=== PATIENT | female | born 1950 | race Caucasian/White ===

== ENCOUNTER 2023-11-17 10:27 | Emergency (ER) | payer MEDICARE, BC, SELFPAY ==
[2023-11-17] VITALS (20 sets, daily range): BP systolic 113–131; BP diastolic 51–65; PULSE 60–73; RESP 18; TEMP 36.6; O2SAT 92–97; BMI 29.0
--- NOTE | 2023-11-17 10:54 | CRLHL7_ITS ---
For Patients: As a result of the Century Cures Act, medical imaging exams and procedure reports are released immediately into your electronic medical record. You may view this report before your referring provider. If you have questions, please contact your health care provider. Indication: FALL, LT ANKLE PAIN Technique: Three views of the left ankle Comparison: Left ankle radiographs on November 15, 2023 Findings/impression : There is redemonstration of a minimally displaced Vela B distal fibula fracture with minimal lateral displacement. No medial clear space widening. No new fracture or malalignment. Reduced lateral ankle soft tissue swelling. Dictated by Tony Cash MD @ 11/17/2023 1:35:10 PM (Electronically Signed)
--- NOTE | 2023-11-17 10:54 | CRLHL7_ITS ---
For Patients: As a result of the Century Cures Act, medical imaging exams and procedure reports are released immediately into your electronic medical record. You may view this report before your referring provider. If you have questions, please contact your health care provider. INDICATION: FALL, BLUNT Trauma, FALL ON WARFARIN TECHNIQUE: CT of the head was performed without IV contrast. COMPARISON: None. FINDINGS: Parenchyma: No acute hemorrhage, infarction, or mass. Mild scattered periventricular white matter hypoattenuation is nonspecific and is favored to represent chronic small vessel ischemic disease. Ventricles and extra-axial spaces: Appropriate for age. Visualized paranasal sinuses: Clear. Mastoid air cells: Clear. Bones: No focal abnormality. Additional comment: Bilateral lens surgery. IMPRESSION: No acute intracranial abnormality. Please note that all CT scans at this facility use dose modulation, iterative reconstruction, and/or weight-based dosing when appropriate to reduce radiation dose to as low as reasonably achievable. Dictated by Darshan Kamara MD @ 11/17/2023 1:10:02 PM (Electronically Signed)
--- NOTE | 2023-11-17 10:54 | CRLHL7_ITS ---
For Patients: As a result of the Cures Act, medical imaging exams and procedure reports are released immediately into your electronic medical record. You may view this report before your referring provider. If you have questions, please contact your health care provider. Indication: Fall with knee pain Technique: Three views of the left knee Comparison: None Findings/impression : No acute fracture or malalignment. No joint effusion. Mild joint space narrowing and subchondral sclerosis with small osteophyte formation of the lateral patellofemoral joint space; otherwise, no significant osteoarthritic degenerative changes of the left knee. No suspicious osseous lesions. Vascular calcifications. Dictated by Tony Cash MD @ 11/17/2023 1:31:14 PM (Electronically Signed)
--- NOTE | 2023-11-17 10:55 | CRLHL7_ITS ---
For Patients: As a result of the Century Cures Act, medical imaging exams and procedure reports are released immediately into your electronic medical record. You may view this report before your referring provider. If you have questions, please contact your health care provider. INDICATION: FALL, BLUNT Trauma, FALL ON WARFARIN TECHNIQUE: CT of the cervical spine was performed without intravenous contrast. COMPARISON: None. FINDINGS: Alignment: Normal. Vertebrae: Vertebral bodies and posterior elements are intact without acute fracture. Mild multilevel degenerative changes of the visualized spine most prominent C5-6. Extra-vertebral soft tissues: Normal. Visualized brain: Normal. Additional comment: None. IMPRESSION: No acute displaced fracture or malalignment of the cervical spine. Please note that all CT scans at this facility use dose modulation, iterative reconstruction, and/or weight-based dosing when appropriate to reduce radiation dose to as low as reasonably achievable. Dictated by Darshan Kamara MD @ 11/17/2023 1:04:20 PM (Electronically Signed)
--- OUTSIDE RECORDS SUMMARY | 2023-11-17 11:04 | XMS_ITS | Encounter Summary ---
Author Organization [facility] Address [address] [place] [address] Care Team Providers Care Loan Coordinator Name Role Phone Geeta Ladd M.D. Primary Care Pro vider Encounter Details Date Type Department Care Team (Latest Contact Info) Description 09/22/2023 8:32 AM CDT - 09/22/2023 11:59 PM CDT Hospital Encounter Department of Laboratory Medicine in [address] [phone] Geeta Ladd M.D. [address] [place] [phone] Antiphospholipid Antibody Syndrome (HCC) Discharge Disposition: Home or Self Care Social History Tobacco Use Types Packs/Day Years Used Date Smoking Tobacco: Never Smokeless Tobacco: Never Alcohol Use Standard Drinks/Week Comments Yes 1 (1 standard drink = 0.6 oz pur e alcohol) Humiliation, Afraid, Rape, and Kick questionnair e Answer Date Recorded Within the last year, have y ou been afraid of your partner or ex-partner? No 10/05/2022 Within the last year, have y ou been humiliated or emotionally abused in other ways by your partner or ex-partner? No Within the last year, have y ou been kicked, hit, slapped, or otherwise physically hurt by your partner or ex-partner? No 10/05/2022 Within the last year, have y ou been raped or forced to have any kind of sexual activity by your partner or ex-partner? No 10/05/2022 Social Connection and Isolat ion Panel [NHANES] Answer Date Recorded In a typical week, how many times do you talk on the phone with family, friends, or neighbors? More than three times a week 10/05/2022 How often do you get togethe r with friends or relatives? Once a week 10/05/2022 How often do you attend [facility] or latter day services? Patient declined 10/05/2022 Do you belong to any clubs o r organizations such as gnosticism groups, unions, fraternal or athletic groups, or school groups? No 10/05/2022 How often do you attend meet ings of the clubs or organizations you belong to? Never 10/05/2022 Are you , , di vorced, , never , or living with a partner? 10/05/2022 AUDIT-C Answer Date Recorded Q1: How often do you have a drink containing alc ohol? Never 10/05/2022 Q2: How many drinks containi ng alcohol do you have on a typical day when you are drinking? 1 or 2 10/05/2022 Q3: How often do you have six or more drinks on one occasion? Never 10/05/2022 Overall Financial Resource Strain (CARDIA) Answe r Date Recorded How hard is it for you to pa y for the very basics like food, housing, medical care, and heating? Not hard at all 10/05/2022 PHQ-2 Answer Date Recorded PHQ-2 Score 0 01/17/2023 [facility] Occupat ional [facility] - Occupational Stress Questionnaire Answer Date Recorded Do you feel stress - tense, restless, nervous, or anxious, or unable to sleep at night because your mind is troubled all the time - these days? To some extent 10/05/2022 Exercise Vital Sign Answer Date Recorde d On average, how many days pe r week do you engage in moderate to strenuous exercise (like a brisk walk)? 0 days 10/05/2022 On average, how many minutes do you engage in exercise at this level? 30 min 10/05/2022 Hunger Vital Sign Answer Date Recorded Within the past 12 months, y ou worried that your food would run out before you got the money to buy more. Never true 10/06/19 23 Within the past 12 months, t he food you bought just didn't last and you didn't have money to get more. Never true 10/05/2022 PRAPARE - Transportation Answer Date Re corded In the past 12 months, has l ack of transportation kept you from medical appointments or from getting medications? No 09/15 In the past 12 months, has l ack of transportation kept you from meetings, work, or from getting things needed for daily living? No 10/05/2022 Housing Stability Vital Sign Answer Andrea e Recorded In the last 12 months, was t here a time when you were not able to pay the mortgage or rent on time? No 10/05/2022 In the last 12 months, how many places have you lived? 1 10/05/2022 In the last 12 months, was t here a time when you did not have a steady place to sleep or slept in a fdc (including now)? No 10/05/2022 Nutrition Answer Date Recorded Nutrition: EVOO Fat Source No 10/05 On average, how many serving s of fruits and vegetables do you eat per day (serving size is equal to 1 cup or approximately the size of a tennis ball)? 2-3 10/05/2022 Dental Answer Date Recorded Dental: Regular Dentist Yes 08/30/19 Employment Answer Date Recorded Employment status Retired 10/05/2022 Education Answer Date Recorded What is the highest level of school you have completed or the highest degree you have received? 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 90 tablet 3 11/18/2022 atorvastatin (LIPITOR) 40 mg tablet TAKE 1 TABLET AT BEDTIME 90 tablet 3 03/01/2023 cholecalciferol (for_VITAMIN D3) 1,000 Unit tablet Take 1 tablet by mouth daily. 02/19/2017 cyanocobalamin (VITAMIN B12) 1,000 mcg tablet Take 1,000 mcg by mouth daily. DME CPAPIndications:Obstru ctive Sleep Apnea Adult DME Order 1 Device NEEDED 05/05/2019 losartan (COZAAR) 100 mg tablet Take 1 tablet (100 mg total) by mouth daily. 90 tablet 3 08/06/2023 polymyxin B-trimethoprim (POLYTRIM) 10,000 unit- 1 mg/mL ophthalmic solution Administer 1 drop into the left eye 2 (two) times a day. 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 PLEASE TAKE PER ANTICOAGULATION VISIT SUMMARY- CURRENT DOSE: 1 TAB DAILY 90 tablet 3 08/06/2023 documented as of this encounter Plan of Treatment Upcoming Encounters Date Type Department Care Team (Latest Contact Info) Description 12/15/2023 8:50 AM CDT Appointment Department of Laboratory Medicine in [address] [phone] Geeta Ladd M.D. [address] [place] [phone] 12/15/2023 9:30 AM CDT Anticoagulation Visit Department of Anticoagulation in [place] [address] [place] [phone] Geeta Ladd M.D. [address] [place] [phone] documented as of this encounter Procedures Procedure Name Priority Date/Time Associated Diagnosis Comments INR REFLEX, POCT, B Routine 09/22/2023 8 :36 AM CDT Antiphospholipid Antibody Syndrome (HCC) documented in this encounter Results * INR Reflex, POCT, Blood (09/22/2023 8:36 AM CDT) INR Reflex, POCT, B 2.6 09/22/2023 8:36 AM CDT [facility] Comment: ----ADDITIONAL INFORMATION---- Standard intensity warfarin therapeutic range: 2.0 to 3.0 ?? High intensity warfarin therapeutic range: 2.5 to 3.5 Blood (Blood, Capillary) 09/22/2023 8:36 AM CDT 09/22/2023 8:36 AM CDT Geeta Hamilton M.D. LAB POCT ORDERABLES - DEVICE [facility] [address] [place] [id number], [facility] in [address] [address] documented in this encounter Visit Diagnoses Diagnosis Antiphospholipid Antibody Syndrome (HCC) documented in this encounter Additional Health Concerns Assessment Noted Time PHQ-9 Depression Total Score: 1 02/03/20 18 8:48 AM CDT documented as of this encounter Care Teams Loan Coordinator Relationship Specialty Start Date End Date Geeta Ladd M.D. [address] [place] [phone] PCP - General Family Medicine 03/31/17 documented as of this encounter
--- OUTSIDE RECORDS SUMMARY | 2023-11-17 11:04 | XMS_ITS | Encounter Summary ---
Author Organization [facility] Address [address] [place] [address] Care Team Providers Care Pot Sander Name Role Phone Yana Ladd M.D. Primary Care Pro vider Reason for Visit * Outpatient (Routine) - Authorized Specialty Diagnoses / Procedures Referred By Abida t Referred To Contact Anticoagulation Yana Ladd M.D. [address] [place] [address] [place] [phone] [facility] Referral ID Status Reason Start Date Expiration Date V isits Requested Visits Authorized [id number] Authorized 11/30/2022 11/29/2025 [id number] Encounter Details Date Type Department Care Team (Latest Contact Info) Description 09/22/2023 9:30 AM CDT Anticoagulation Visit Department of Anticoagulation in [place], [place] [address] [place] [phone] Yana Ladd M.D. [address] [place] [phone] Hemiplegia And Hemiparesis Following Cerebral Infarction Affecting Right Dominant Side (HCC) (Primary Dx); Patent Foramen Ovale (HCC); Monitoring For Therapeutic Drug Therapy; Half-Way (Current) Anticoagulant Treatment; Antiphospholipid Antibody Syndrome (HCC) Social History Tobacco Use Types Packs/Day Years [...] week 10/05/2022 How often do you attend [facility] or taoism services? Patient declined 10/05/2022 Do you belong to any clubs o r organizations such as taoist groups, unions, fraternal or athletic groups, or [...] Answer Date Recorded PHQ-2 Score 0 01/17/2023 [facility] of Occupat ional Health - Occupational Stress [...] place to sleep or slept in a group home (including now)? No 10/05/2022 Nutrition Answer Date Recorded Nutrition: EVOO Fat Source No 10/05 On average, how many serving s of fruits and vegetables do you eat per day (serving size is equal to 1 cup or approximately the size of a tennis ball)? 2-3 10/05/2022 Dental Answer Date Recorded Dental: Regular Dentist Yes 08/30/19 21 Employment Answer Date Recorded Employment status Retired 10/05/2022 Education Answer Date Recorded What is the highest level of school you have completed or the highest degree you have received? 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 - 09/22/2023 9:30 AM CDT Your next INR will be 11/03/23. You will need to call the Anticoagulation Program for warfarin dosing at the scheduled time for your nurse visit, as indicated on your Patient Appointment Guide (PAG). To reschedule your appointment or for questions about your warfarin, please call Primary Care Anticoagulation Program at [phone] from 7:30 am to 4:30 pm. Wednesday-Wednesday . When To Contact Your Health Care Provider If you are experiencing any of the following symptoms, Call 911 or go to the emergency room: chest pain, shortness of breath, vomiting or coughing up blood, large amounts of rectal bleeding, symptomsof a stroke- sudden weakness or inability to move a body part (the face, arm or leg), difficulty speaking or trouble understanding others, sudden blurred, decreased vision, or double vision, dizziness, loss of balance /coordination or a sudden, severe headache. If you fall and or hit your head or suffer a blow to the head, seek emergency treatment. Contact your health care provider about your Warfarin dose: Before any surgical procedures (including tooth extractions) and certain non- surgical procedures (for example, colonoscopies). When you are sick with a fever or develop persistent diarrhea or vomiting. If you doubt that you took your Warfarin as directed. If you start an antibiotic or any prescription drug or if you start any herbal or other [id number] product (check with your doctor, a nurse, or pharmacist). If you change your diet significantly. If you decide to stop or start using tobacco or alcohol. If you notice unusual bruising or bleeding. If you notice dark, tarry, or bright red stools or blood in your urine. If you have a painful and swollen calf. documented in this encounter Progress Notes * Yana Dalal R.N. - 09/22/2023 9:30 AM CDT Warfarin Maintenance Nursing Protocol Goal Range 2.0-3.0 (version approved 06/2021) Visit Type: Telephone Primary reason for visit: Routine f/u OR f/u per previous visit recommendations Information provided by:patient INR result: 2.6 Goal range: 2.0-3.0 Inclusion Criteria: All inclusion criteria met. Proceeded to exclusion criteria. Exclusion Criteria: Section 1: No Section 1 exclusion criteria, proceeded to Section 2. Section 2: No Section 2 exclusion criteria, proceeded to screening criteria. Screening Criteria: All screening criteria negative. Testing interval extension evaluation: INR in range today? Yes, but patient has antiphospholipid syndrome (APS)/lupus anticoagulant syndrome, patient not eligible fortesting interval extension. Proceeded to maintenance warfarin dosing and follow-up. Additional Info: Pt has been working a bit more in the garden. Previous INR was therapeutic. Today???s INR is Therapeutic. Dosing and follow up recommendation: Protocol dosing range for INR 2.0-3.0: No change in weekly dose. Currently bridging? no. Next INR in twice the amount of time since last INR (max duration is 4-6 weeks): 6 weeks. Additional dosing or follow-up information: None. Pt is on injectable anticoagulant: No. Plan used: Protocol. See Anticoagulation Track Calendar for dosing and plan details. Anticoagulation Visit Summary: Patient repeats back dosing instructions, date of next INR, and has no further questions at this time. and Patient provided with warfarin dosing and next INR appointment via Patient Online Services. Patient encouraged to call or send message back if any questions. Total time spent with patient: N/A documented in this encounter Miscellaneous Notes * Addendum Note - Yana Dalal R.N. - 09/22/2023 9:30 AM CDTAddended by: YANA DALAL on: 09/22/2023 09:03 AM Modules accepted: Orders documented in this encounter Plan of Treatment Upcoming Encounters Date Type Department Care Team (Latest Contact Info) Description 12/15/2023 8:50 AM CDT Appointment Department of Laboratory Medicine in [address] [phone] Yana Ladd M.D. [address] [place] [phone] 12/15/2023 9:30 AM CDT Anticoagulation Visit Department of Anticoagulation in [address] [phone] Yana Ladd M.D. [address] [place] [phone] documented as of this encounter Results * INR Reflex, POCT, Blood (11/03/2023 9:06 AM CDT) INR Reflex, POCT, B 2.2 11/03/2023 9:05 AM CDT [facility] Comment: ----ADDITIONAL INFORMATION---- Standard intensity warfarin therapeutic range: 2.0 to 3.0 ?? High intensity warfarin therapeutic range: 2.5 to 3.5 Blood (Blood, Capillary) 11/03/2023 9:06 AM CDT 11/03/2023 9:05 AM CDT Yana Hamilton M.D. LAB POCT ORDERABLES - DEVICE [facility] [address] [place] [id number], [facility] [address] [address] documented in this encounter Visit Diagnoses Diagnosis Hemiplegia And Hemiparesis Following Cerebral Infarction Affecting Right Dominant Side (HCC)- Primary Patent Foramen Ovale (HCC) Monitoring For Therapeutic Drug Therapy Director Sales Training (Current) Anticoagulant Treatment Antiphospholipid Antibody Syndrome (HCC) documented in this encounter Additional Health Concerns Assessment Noted Time PHQ-9 Depression Total Score: 1 02/03/20 18 8:48 AM CDT documented as of this encounter Care Teams Pot Sander Relationship Specialty Start Date End Date Yana Ladd M.D. [address] [place] [phone] PCP - General Family Medicine 03/31/17 documented as of this encounter
--- OUTSIDE RECORDS SUMMARY | 2023-11-17 11:04 | XMS_ITS | Encounter Summary ---
Author Organization [facility] Address [address] [place] [address] Care Team Providers Care Manager Social Responsibility Name Role Phone Geeta Ladd M.D. Primary Care Pro vider Encounter Details Date Type Department Care Team (Latest Contact Info) Description 11/03/2023 8:50 AM CDT - 11/03/2023 11:59 PM CDT Hospital Encounter Department of Laboratory Medicine in [address] [phone] Geeta Ladd M.D. [address] [place] [phone] Hemiplegia And Hemiparesis Following Cerebral Infarction Affecting Right Dominant Side (HCC); Patent Foramen Ovale (HCC); Monitoring For Therapeutic Drug Therapy; Facilities Clerk (Current) Anticoagulant Treatment; Antiphospholipid Antibody Syndrome (HCC) Discharge Disposition: Home [...] week 10/05/2022 How often do you attend [facility] or rastafari services? Patient declined 10/05/2022 Do you belong to any clubs o r organizations such as anglican groups, unions, fraternal or athletic groups, or [...] Answer Date Recorded PHQ-2 Score 0 01/17/2023 [facility] Occupat ional [facility] - Occupational Stress Questionnaire Answer Date Recorded [...] place to sleep or slept in a half-way (including now)? 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 PLEASE TAKE PER ANTICOAGULATION VISIT SUMMARY- CURRENT DOSE: 1 TAB DAILY 90 tablet 3 08/06/2023 documented as of this encounter Plan of Treatment Upcoming Encounters Date Type Department Care Team (Latest Contact Info) Description 12/15/2023 8:50 AM CDT Appointment Department of Laboratory Medicine in [address] [phone] Geeta Ladd M.D. [address] [place] [phone] 12/15/2023 9:30 AM CDT Anticoagulation Visit Department of Anticoagulation in [place], [place] [address] [place] [address] Geeta Ladd M.D. [address] [place] [phone] documented as of this encounter Procedures Procedure Name Priority Date/Time Associated Diagnosis Comments INR REFLEX, POCT, B Routine 11/03/2023 9:06 AM CDT Hemiplegia And Hemiparesis Following Cerebral Infarction Affecting Right Dominant Side (HCC) Patent Foramen Ovale (HCC) Monitoring For Therapeutic Drug Therapy Penitentiary (Current) Anticoagulant Treatment Antiphospholipid Antibody Syndrome (HCC) documented in this encounter Results * INR Reflex, POCT, Blood (11/03/2023 9:06 AM CDT) INR Reflex, POCT, B 2.2 11/03/2023 9:05 AM CDT [facility] Comment: ----ADDITIONAL INFORMATION---- Standard intensity warfarin therapeutic range: 2.0 to 3.0 ?? High intensity warfarin therapeutic range: 2.5 to 3.5 Blood (Blood, Capillary) 11/03/2023 9:06 AM CDT 11/03/2023 9:05 AM CDT Geeta Hamilton M.D. LAB POCT ORDERABLES - DEVICE [facility] [address] [place] [id number], [place] [facility] in [address] [address] documented in this encounter Visit Diagnoses Diagnosis Hemiplegia And Hemiparesis Following Cerebral Infarction Affecting Right Dominant Side (HCC) Patent Foramen Ovale (HCC) Monitoring For Therapeutic Drug Therapy Facilities Clerk (Current) Anticoagulant Treatment Antiphospholipid Antibody Syndrome (HCC) documented in this encounter Additional Health Concerns Assessment Noted Time PHQ-9 Depression Total Score: 1 02/03/20 18 8:48 AM CDT documented as of this encounter Care Teams Manager Social Responsibility Relationship Specialty Start Date End Date Geeta Ladd M.D. [address] [phone] PCP - General Family Medicine 03/31/17 documented as of this encounter
--- OUTSIDE RECORDS SUMMARY | 2023-11-17 11:04 | XMS_ITS | Encounter Summary ---
Author Organization [facility] Address [address] [place] [address] Care Team Providers Care Office Machine Inspector Name Role Phone Geeta Ladd M.D. Primary Care Pro vider Reason for Referral * Outpatient (Routine) - Closed Specialty Diagnoses / Procedures Referred By Abida bolton Referred To Contact Diagnoses Screening Mammogram Breast Cancer Procedures BI Breast Screening Bilateral with Tomosynthesis Geeta Ladd M.D. [id number] [place] [address] [place] [address] [facility] Referral ID Status Reason Start Date Expiration Date Visits Re quested Visits Authorized [id number] Closed 07/20/2023 07/19/2024 1 1 Reason for Visit * Outpatient (Routine) - Closed Specialty Diagnoses / Procedures Referred By Abida bolton Referred To Contact Diagnoses Screening Mammogram Breast Cancer Procedures BI Breast Screening Bilateral with Tomosynthesis Geeta Ladd M.D. [address] [place] [phone] [facility] Region Referral ID Status Reason Start Date Expiration Date Visits Re quested Visits Authorized [id number] Closed 07/20/2023 07/19/2024 1 1 Encounter Details Date Type Department Care Team (Latest Contact Info) Description 08/25/2023 9:29 AM CDT - 08/25/2023 11:59 PM CDT Hospital Encounter Department of Radiology in [address] [phone] Geeta Ladd M.D. [address] [place] [phone] Screening Mammogram Breast Cancer Discharge Disposition: Home or Self Care Social [...] week 10/05/2022 How often do you attend chur or adventism services? Patient declined 10/05/2022 Do you belong to any clubs o r organizations such as yazidi groups, unions, fraternal or athletic groups, or [...] Answer Date Recorded PHQ-2 Score 0 01/17/2023 [facility] [place] [facility] Occup[facility] - Occupational Stress [...] place to sleep or slept in a retirement (including now)? 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 PLEASE TAKE PER ANTICOAGULATION VISIT SUMMARY- CURRENT DOSE: 1 TAB DAILY 90 tablet 3 08/06/2023 documented as of this encounter Plan of Treatment Upcoming Encounters Date Type Department Care Team (Latest Contact Info) Description 12/15/2023 8:50 AM CDT Appointment Department of Laboratory Medicine in [address] [phone] Geeta Ladd M.D. [address] [place] [phone] 12/15/2023 9:30 AM CDT Anticoagulation Visit Department of Anticoagulation in [place] [address] [place] [address] Geeta Ladd M.D. [address] [place] [phone] documented as of this encounter Procedures Procedure Name Priority Date/Time Associated Diagnosis Comments BI BREAST SCREENING BILATERAL WITH TOMOSYNTHESIS RAD - Routine (most inpatients and all outpatients) 08/25/2023 9:49 AM CDT Screening Mammogram Breast Cancer documented in this encounter Results * BI Breast Screening Bilateral with Tomosynthesis (08/25/2023 9:49 AM CDT) Anatomical Region Laterality Modality Breast, Breast Imaging RST L OS, Breast Imaging ARZ LOS, Breast Imaging FLA LOS Bilateral Mammography Impressions 08/25/2023 11:04 AM CDT Negative. RECOMMENDATION: ??Annual Screening Mammogram ASSESSMENT: ??BI-RADS: 1: Negative. Narrative 08/25/2023 11:04 AM CDT EXAM: ??BI BREAST SCREENING BILATERAL WITH TOMOSYNTHESIS Current study was evaluated with a Computer Aided Detection (CAD) system. INDICATION: ??Screening mammogram. COMPARISON: ??Prior exam(s) were available and reviewed for comparison. DENSITY: ??b. There are scattered areas of fibroglandular density. FINDINGS: ??No mammographic findings of malignancy. Procedure Note Lynette Denton D.O. - 08/25/2023 EXAM: BI BREAST SCREENING BILATERAL WITH TOMOSYNTHESIS Current study was evaluated with a Computer Aided Detection (CAD) system. INDICATION: Screening mammogram. COMPARISON: Prior exam(s) were available and reviewed for comparison. DENSITY: b. There are scattered areas of fibroglandular density. FINDINGS: No mammographic findings of malignancy. IMPRESSION: Negative. RECOMMENDATION: Annual Screening Mammogram ASSESSMENT: BI-RADS: 1: Negative. Geeta Hamilton M.D. IMG BI CT OCEDURES documented in this encounter Visit Diagnoses Diagnosis Screening Mammogram Breast Cancer documented in this encounter Additional Health Concerns Assessment Noted Time PHQ-9 Depression Total Score: 1 02/03/20 18 8:48 AM CDT documented as of this encounter Care Teams Office Machine Inspector Relationship Specialty Start Date End Date Geeta Ladd M.D. [address] [phone] PCP - General Family Medicine 03/31/17 documented as of this encounter
--- OUTSIDE RECORDS SUMMARY | 2023-11-17 11:04 | XMS_ITS | Encounter Summary ---
Author Organization [facility] Address [address] [place] [address] Care Team Providers Care Traveling Electrician Name Role Phone Geeta Ladd M.D. Primary Care Pro vider Reason for Visit * Outpatient (Routine) - Authorized Specialty Diagnoses / Procedures Referred By Abida t Referred To Contact Anticoagulation Geeta Ladd M.D. [address] [place] [address] [place] [address] [facility] Referral ID Status Reason Start Date Expiration Date V isits Requested Visits Authorized [id number] Authorized 11/30/2022 11/29/[phone] Encounter Details Date Type Department Care Team (Latest Contact Info) Description 11/03/2023 9:30 AM CDT Anticoagulation Visit Department of Anticoagulation in [place], [place] [address] [place] [address] Geeta Ladd M.D. 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 - 11/03/2023 9:30 AM CDT Your next INR will be 6 weeks. You will need to call the Anticoagulation Program for warfarin dosing at the scheduled time for your nurse visit, as indicated on your Patient Appointment Guide (PAG). To reschedule your appointment or for questions about your warfarin, please call Primary Care Anticoagulation Program at [phone] from 7:30 am to 4:30 pm. Wednesday-Wednesday [...] if you start any herbal or other [id number] product (check with your doctor, a nurse, or pharmacist). If you change your diet significantly. If you decide to stop or start using tobacco or alcohol. If you notice unusual bruising or bleeding. If you notice dark, tarry, or bright red stools or blood in your urine. If you have a painful and swollen calf. documented in this encounter Progress Notes * Zuleima Eng M.S.N., R.N. - 11/03/2023 9:30 AM CDT Warfarin Maintenance Nursing Protocol Goal Range 2.0-3.0 (version approved 06/2021) Visit Type: Telephone Primary reason for visit: Routine f/u OR f/u per previous visit recommendations Information provided by:patient INR result: 2.2 Goal range: 2.0-3.0 Inclusion Criteria: All inclusion [...] maintenance warfarin dosing and follow-up. Additional Info: None Previous INR was therapeutic. Today???s INR is Therapeutic. Dosing and follow up recommendation: Protocol dosing range for INR 2.0-3.0: No change in weekly dose. Currently bridging? no. Next INR in 6 weeks. per positive screening criteria. Additional dosing or follow-up information: None. Pt is on injectable anticoagulant: No. Plan used: Protocol. See Anticoagulation Track Calendar for dosing and plan details. Anticoagulation Visit Summary: Patient repeats back dosing instructions, date of next INR, and has no further questions at this time. Total time spent with patient: N/A documented in this encounter Plan of Treatment Upcoming Encounters Date Type Department Care Team (Latest Contact Info) Description 12/15/2023 8:50 AM CDT Appointment Department of Laboratory Medicine in [address] [phone] Geeta Ladd M.D. [address] [place] [phone] 12/15/2023 9:30 AM CDT Anticoagulation Visit Department of Anticoagulation in [address] [phone] Geeta Ldad M.D. [address] [place] [phone] Scheduled Orders Name Type Priority Associated Diagnoses Orde r Schedule INR Reflex, POCT, Blood Point of Care Testing-Docked Device Routine Hemiplegia And Hemiparesis Following Cerebral Infarction Affecting Right Dominant Side (HCC) Patent Foramen Ovale (HCC) Monitoring For Therapeutic Drug Therapy Chcf (Current) Anticoagulant Treatment Antiphospholipid Antibody Syndrome (HCC) Expected: 12/15/2023, Expires: 02/02/2025 documented as of this encounter Visit Diagnoses Diagnosis Hemiplegia And Hemiparesis Following Cerebral Infarction Affecting Right Dominant Side (HCC)- Primary Patent Foramen Ovale (HCC) Monitoring For Therapeutic Drug Therapy Assistant Teaching Professor (Current) Anticoagulant Treatment Antiphospholipid Antibody Syndrome (HCC) documented in this encounter Additional Health Concerns Assessment Noted Time PHQ-9 Depression Total Score: 1 02/03/20 18 8:48 AM CDT documented as of this encounter Care Teams Traveling Electrician Relationship Specialty Start Date End Date Geeta Ladd M.D. [address] [phone] PCP - General Family Medicine 03/31/17 documented as of this encounter
--- OUTSIDE RECORDS SUMMARY | 2023-11-17 11:04 | XMS_ITS | Clinical Summary ---
Author Organization [facility] Address [address] [place] [address] Care Team Providers Care Electronics Hardware Design Engineer Name Role Phone Geeta Ladd M.D. Primary Care Pro vider Source Comments Patient records contain information from all sites at [facility]. For routine questions regarding patient records, call [phone] during business hours, M-F 8:00 AM - 5:00 PM Central Time. Record requests for emergency care only can be directed to [phone] at any time.[facility] Allergies Active Allergy Reactions Criticality Noted Date Comments Hydrocodone-Acetaminophe n Other (see comments) Low 08/12/2013 GI upset Rash Iodine Rash Medium 08/05/2021 Iodine was used during ct scan and she had a reaction believed due to iodine. Levofloxacin Other (see comments) Low 06/30/2010 Rash Metronidazole Rash Low Penicillins Rash Low Sulfa (Sulfonamide Antibiotics) Other (see comments) Low 06/30/2010 Rash Facial redness Medications Medication Sig Dispensed Refills Start Date End Date Status cholecalciferol (for_VITAMIN D3) 1,000 Unit tablet Take 1 tablet by mouth daily. 7 Active DME CPAPIndications:Obst ructive Sleep Apnea Adult DME Order 1 Device NEEDED 9 Active aspirin 81 mg chewable tablet Chew 1 tablet (81 mg total) daily. 90 tablet 3 2 Active cyanocobalamin (VITAMIN B12) 1,000 mcg tablet Take 1,000 mcg by mouth daily. Active amLODIPine (NORVASC) 5 mg tablet Take 1 tablet (5 mg total) by mouth daily. 90 tablet 3 3 Active atorvastatin (LIPITOR) 40 mg tablet TAKE 1 TABLET AT BEDTIME 90 tablet 3 3 Active polymyxin B-trimethoprim (POLYTRIM) 10,000 unit- 1 mg/mL ophthalmic solution Administer 1 drop into the left eye 2 (two) times a day. 10 mL 4 Active enoxaparin (LOVENOX) 80 mg/0.8 mL injectionIndications :Hemiplegia And Hemiparesis Following Cerebral Infarction Affecting Right Dominant Side (HCC) Inject 0.8 mL (80 mg total) under the skin 2 (two) times a day for 6 doses. Per periprocedure plans given to patient 4.8 mL 4 Active warfarin (JANTOVEN) 5 mg tabletIndications:He miplegia And Hemiparesis Following Cerebral Infarction Affecting Right Dominant Side (HCC),Patent Foramen Ovale (HCC),Monitoring For Therapeutic Drug Therapy,Skilled Nursing (Current) Anticoagulant Treatment,Antiphosph olipid Antibody Syndrome (HCC) THIS IS YOUR BLOOD THINNER PRESCRIPTION. PLEASE TAKE PER ANTICOAGULATION VISIT SUMMARY- CURRENT DOSE: 1 TAB DAILY 90 tablet 3 4 Active losartan (COZAAR) 100 mg tablet Take 1 tablet (100 mg total) by mouth daily. 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 Dermatochalasis Left Upper Eyelid 03/02/2023 Dermatochalasis Right Upper Eyelid 03/02/2023 Antiphospholipid Antibody Syndrome 02/25/2022 Tarsal Tunnel Syndrome Right 02/05/2022 Overview: Added automatically from request for surgery [id number] Monitoring For Therapeutic Drug Therapy 09/09/19 Skilled Nursing (Current) Anticoagulant Treatment 08/16 Primary Osteoarthritis Knee Right 07/31/2021 Overview: Added automatically from request for surgery [id number] Patent Foramen Ovale 05/23/2021 Hemiplegia And Hemiparesis F ollowing Cerebral Infarction Affecting Right Dominant Side 05/06/2021 Hypertension Essential Primary 10/07/2020 Obstructive Sleep Apnea Adult 03/31/2017 Presbyopia 10/09/2015 Replacement Intraocular Lens Status Post 016 Osteoporosis 09/22/2010 Overview: DEXA 2016- Spine T-SCORE: -2.8, Hip T-SCORE: -2.5 Started on Fosamax 2016 DEXA 2018- Spine T-score: -1.5, Hip T-score: -2.7 Pain Low Back Unspecified Tendinitis Posterior Tibialis Right Resolved Problems Problem Noted Date Diagnosed Date Resolved Date Weakness Arm Right 04/27/2021 3 Screening Cancer Colon 04/11/201805/03 Overview: Added automatically from request for surgery [id number] Encounters Date Type Department Care Team Description 11/03/2023 9:30 AM CDT Anticoagulation Visit Department of Anticoagulation in [address] [phone] Geeta Ladd M.D. Hemiplegia And Hemiparesis Following Cerebral Infarction Affecting Right Dominant Side (HCC) (Primary Dx); Patent Foramen Ovale (HCC); Monitoring For Therapeutic Drug Therapy; Skilled Nursing (Current) Anticoagulant Treatment; Antiphospholipid Antibody Syndrome (HCC) 11/03/2023 8:50 AM CDT - 11/03/2023 11:59 PM CDT Hospital Encounter Department of Laboratory Medicine in [address] [phone] Geeta Ladd M.D. Hemiplegia And Hemiparesis Following Cerebral Infarction Affecting Right Dominant Side (HCC); Patent Foramen Ovale (HCC); Monitoring For Therapeutic Drug Therapy; Skilled Nursing (Current) Anticoagulant Treatment; Antiphospholipid Antibody Syndrome (HCC) Discharge Disposition: Home or Self Care 09/22/2023 9:30 AM CDT Anticoagulation Visit Department of Anticoagulation in [place], [place] [address] [place] [phone] Geeta Ladd M.D. Hemiplegia And Hemiparesis Following Cerebral Infarction Affecting Right Dominant Side (HCC) (Primary Dx); Patent Foramen Ovale (HCC); Monitoring For Therapeutic Drug Therapy; Cnc Mill Programmer (Current) Anticoagulant Treatment; Antiphospholipid Antibody Syndrome (HCC) 09/22/2023 8:32 AM CDT - 09/22/2023 11:59 PM CDT Hospital Encounter Department of Laboratory Medicine in [address] [phone] Geeta Ladd M.D. Antiphospholipid Antibody Syndrome (HCC) Discharge Disposition: Home or Self Care 09/09/2023 Orders Only Department of Family Medicine, [facility], in [address] [phone] Geeta Ladd M.D. Hemiplegia And Hemiparesis Following Cerebral Infarction Affecting Right Dominant Side (HCC) (Primary Dx); Patent Foramen Ovale (HCC); Monitoring For Therapeutic Drug Therapy; Cnc Mill Programmer (Current) Anticoagulant Treatment 08/25/2023 10:30 AM CDT Anticoagulation Visit Department of Anticoagulation in [place], [place] [address] [place] [phone] Geeta Ladd M.D. 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 Screening Mammogram Breast Cancer Discharge Disposition: Home or Self Care 08/25/2023 9:27 AM CDT - 08/25/2023 9:28 AM CDT Hospital Encounter Department of Laboratory Medicine in [address] [phone] Geeta Ladd M.D. Hemiplegia And Hemiparesis Following Cerebral Infarction Affecting Right Dominant Side (HCC); Patent Foramen Ovale (HCC); Monitoring For Therapeutic Drug Therapy; Skilled Nursing (Current) Anticoagulant Treatment; Antiphospholipid Antibody Syndrome (HCC) Discharge Disposition: Home or Self Care from Last 3 Months Immunizations Name Administration Dates Next Due Influenza high dose QV(65 ye ars or older) (PF) 03/25/2022(Deferred: Patient Refused - pt changed her mind),04/21/2021,03/22/2020 Influenza, Unspecified 02/19/2017,02/12/2016, PCV13 09/14/2014 PPSV23 02/19/2017 RZV (SHINGRIX) 11/07/2019,06/14/2019 SARS-COV-2 (COVID-19) - PFIZ ER (Discontinued)(12 years or older) 04/21/2021,08/16/2020,07/24/2020 Td (Adult), adsorbed 05/25/2003 Tdap 11/27/2021, 2(Deferred: Other - patient left, has dr aly this week),02/12/2016 influenza high dose (65 year s or older) (PF) 05/03/2019,04/11/2018 Family History Medical History Relation Name Comments CABG - Coronary artery bypass graft Brother 1 Don No Known Problems Brother 2 [place] No Known Problems Daughter Skin cancer Father Art Stroke Father Art Cataracts Mother Heart attack Mother Cancer Sister 1 Inga Intellectual Disability Sister 2 Michaela Seizures Sister 2 Michaela No Known Problems Son 1 No Known Problems Son 2 No Known Problems Son 3 Anesthesia problems Neg Hx Glaucoma Neg Hx Macular degeneration Neg Hx Retinal degeneration Neg Hx Retinal detachment Neg Hx Strabismus Neg Hx Relation Name Status Comments Brother 1 Don Alive Brother 2 [place] Alive Daughter Alive Father Art Mother Sister 1 Inga Sister 2 Michaela Son 1 Alive Son 2 Alive Son 3 Alive Social History Tobacco Use Types Packs/Day Years Used Date Smoking Tobacco: Never Smokeless Tobacco: Never Tobacco Cessation:Counseling Given: Not Answered Alcohol Use Standard Drinks/Week Comments Yes 1 [...] week 10/05/2022 How often do you attend [facility] or z[facility]astrian[facility] services? Patient declined 10/05/2022 Do you belong [...] Answer Date Recorded PHQ-2 Score 0 01/17/2023 [facility] - Occupational Stress Questionnaire Answer Date [...] place to sleep or slept in a custodial (including now)? No 10/05/2022 Nutrition Answer Date [...] Sex Assigned at Female 05/23/2021 7:48 PM PSYCHIATRIC AIDE INSTRUCTOR Gender Identity Female 08/29/2020 10:07 AM CDT Sexual Orientation Straight 08/29/2020 10 :07 AM CDT Last Filed Vital Signs Vital Sign Reading Time Taken Comments Blood Pressure 131/59 06/21/2023 1:20 PM PSYCHIATRIC AIDE INSTRUCTOR Pulse 63 06/21/2023 1:20 PM PSYCHIATRIC AIDE INSTRUCTOR Temperature 35.9 ??C (96.6 ??F) 06/21/2023 1:05 PM CS T Respiratory Rate 16 06/21/2023 1:20 PM PSYCHIATRIC AIDE INSTRUCTOR Oxygen Saturation 99% 06/21/2023 1:20 PM PSYCHIATRIC AIDE INSTRUCTOR Inhaled Oxygen Concentration - - Weight 86.3 kg (190 lb 4.1 oz) 06/21/2023 11:13 AM PSYCHIATRIC AIDE INSTRUCTOR Height 173.2 cm (5' 8.19) 06/21/2023 11:[address] Body Mass Index 28.77 06/21/2023 11:13 AM PSYCHIATRIC AIDE INSTRUCTOR Plan of Treatment Upcoming Encounters Date Type Department Care Team (Latest Contact Info) Description 12/15/2023 8:50 AM CDT Appointment Department of Laboratory Medicine in [address] [phone] Geeta Ladd M.D. [address] [place] [phone] 12/15/2023 9:30 AM CDT Anticoagulation Visit Department of Anticoagulation in [place], [place] [address] [place] [address] Geeta Ladd M.D. [address] [place] [phone] Health Maintenance Due Date Last Done Comments CT Colonography 1950 Cologuard 1950 FIT 1950 COVID-19 Vaccine (2022-2 4 season) 2023 04/21/2021, 08/16/2020, 07/24/2020 Visit: Medicare Annual Wellness 02/25/2023 2 Depression Screening (Annual PHQ-2) 05/17/2023 Creatinine Level (Kidney Fun ction Test) 01/23/2024 01/22/2023, 02/24/2022, 08/05/2021, Additional history exists Office Visit for Blood Press ure Check / Re-check 01/23/2024 01/22/2023 Potassium Level 01/23/2024 01/22/2023, 02/14, 08/05/2021, Additional history exists Sodium Level 01/23/2024 01/22/2023, 02/14, 08/05/2021, Additional history exists Visit: Chronic Disease, age 18+ 01/23/2024 3 Influenza Vaccine (#1) 2024 , 03/22/2020, 05/03/2019, Additional history exists Mammogram 08/24/2024 08/25/2023, 06/17, 06/06/2021, Additional history exists Fasting Glucose for Diabetes Screening 01/22/2026 01/22/2023, 02/24/2022, 08/05/2021, Additional history exists Colonoscopy 04/28/2028 04/28/2018, 11/30/2007 Colorectal Cancer Screening 04/28/2028 DTaP,Tdap,and Td Vaccines (3 - Td or Tdap) 11/28/2031 11/27/2021, 02/12/2016, 05/25/2003 Pneumococcal vaccine (65+ years) Completed 02/20/20 17, 09/14/2014 Zoster Vaccines Completed 11/07/2019, 06/14/2019 Fall Risk Screen (Annual) Completed 06/21/2023 Medical Devices Implanted Type Area Box Stacker Device Identifier Shelf Expiration Date Model / Serial / Lot Tibial Component Implanted:Qty : 1 on 03/25/2022 by Navneet Suh M.D. at [facility] Knee Implant Right: Knee Anne [id number] 02/04/2027 5536-B-50 0 / NA / [id number] Femoral Component Implanted:Qty : 1 on 03/25/2022 by Navneet Suh M.D. at [facility] Knee Implant Right: Knee [place] [id number] 11/24/2026 5516-F-60 2 / NA / [id number] Tibial Bearing Insert Implanted:Qty : 1 on 03/25/2022 by Navneet Suh M.D. at [facility] Knee Implant Right: Knee [place] [id number] 02/09/2027 5532-G-51 0-E / NA / [id number] Patella Implanted:Qty : 1 on 03/25/2022 by Navneet Suh M.D. at [facility] Knee Implant Right: Knee [place] [id number] 05/01/2026 5556-L-33 9 / NA / [id number] Ocular (Eye) Implant-2011 Implanted: (Quantity not on file) Ocular (Eye) Implant Right: Eye Description:HC REMV CATARACT EXTRACAP,INSERT LENS - 08/31/11 - right eye, post op care per Rayne @ 1 day Ocular (Eye) Implant-2011 Implanted: (Quantity not on file) Ocular (Eye) Implant Left: Eye Description:HC REMV CATARACT EXTRACAP,INSERT LENS - 09/09/11 - Left eye, post op care per Rayne @ 1 day Procedures Procedure Name Priority Date/Time Associated Diagnosis Comments INR REFLEX, POCT, B Routine 11/03/2023 9 :06 AM CDT Hemiplegia And Hemiparesis Following Cerebral Infarction Affecting Right Dominant Side (HCC) Patent Foramen Ovale (HCC) Monitoring For Therapeutic Drug Therapy Skilled Nursing (Current) Anticoagulant Treatment Antiphospholipid Antibody Syndrome (HCC) INR REFLEX, POCT, B Routine 09/22/2023 8 :36 AM CDT Antiphospholipid Antibody Syndrome (HCC) BI BREAST SCREENING BILATERAL WITH TOMOSYNTHESIS RAD - Routine (most inpatients and all outpatients) 08/25/2023 9:49 AM CDT Screening Mammogram Breast Cancer INR REFLEX, POCT, B Routine 08/25/2023 9 :33 AM CDT Hemiplegia And Hemiparesis Following Cerebral Infarction Affecting Right Dominant Side (HCC) Patent Foramen Ovale (HCC) Monitoring For Therapeutic Drug Therapy Skilled Nursing (Current) Anticoagulant Treatment Antiphospholipid Antibody Syndrome (HCC) BASIC METABOLIC PANEL, S/P Routine 01/22/2023 9:14 AM CDT Hypertension Essential Primary COLONOSCOPY 04/28/2018 7:27 AM PSYCHIATRIC AIDE INSTRUCTOR from Last 3 Months or Most Recently Relevant to Health Maintenance Results * INR Reflex, POCT, Blood (11/03/2023 9:06 AM CDT) Only the most recent of3 resultswithin the time period is included. INR Reflex, POCT, B 2.2 11/03/2023 9:05 AM CDT CNFL Comment: ----ADDITIONAL INFORMATION---- Standard intensity warfarin therapeutic range: 2.0 to 3.0 ?? High intensity warfarin therapeutic range: 2.5 to 3.5 Blood (Blood, Capillary) 11/03/2023 9:06 AM CDT 11/03/2023 9:05 AM CDT Geeta Hamilton M.D. LAB POCT ORDERABLES - DEVICE Performing Organization Address City/State/[facility] Co de Phone Number [facility] [address] [place] [phone], [facility] CNFL [facility] in [address] [address] * BI Breast Screening Bilateral with Tomosynthesis [...] Screening Mammogram ASSESSMENT: BI-RADS: 1: Negative. Geeta SQUIRES BI ID OCEDURES * Basic Metabolic Panel (01/22/2023 9:14 AM CDT) Potassium, P 4.7 3.6 - 5.2 mmol/L 01/22/2023 10:02 AM CDT CNFL Sodium, P 142 135 - 145 mmol/L 01/22/2023 10:02 AM CDT CNFL Chloride, P 106 98 - 107 mmol/L 01/22/2023 10:02 AM CDT CNFL Bicarbonate, P 27 22 - 29 mmol/L 01/22/2023 10:02 AM CDT CNFL Anion Gap, P 9 7 - 15 01/22/2023 10:02 AM CDT CNFL BUN (Blood Urea Nitrogen), P 17 6 - 21 mg/dL 01/22/2023 10:02 AM CDT CNFL Creatinine 0.91 0.59 - 1.04 mg/dL 01/22/2023 10:02 AM CDT CNFL Estimated GFR (eGFR) 66 >=60 mL/min/BSA 01/22/2023 10:02 AM CDT CNFL Comment: Estimated GFR calculated using the 2020 CKD_EPI creatinine equation. Calcium, Total, P 9.2 8.8 - 10.2 mg/dL 01/22/2023 10:02 AM CDT CNFL Glucose, P 82 70 - 140 mg/dL 01/22/2023 10:02 AM CDT CNFL Blood (Blood, Venous) 01/22/2023 9:14 AM CDT 01/22/2023 9:15 AM CDT Geeta Hamilton M.D. LAB BLOOD ADD-ON [facility] [address] [place] [phone], [facility] CNFL [facility] [place] [address] * COLONOSCOPY (04/28/2018 7:27 AM PSYCHIATRIC AIDE INSTRUCTOR) Narrative Procedure Note Manpreet Perez M.D. - 04/28/2018 7:27 AM CST [facility] GI Patient Name: Julisa Moody Procedure Date: 04/28/2018 7:27 AM Date of : 1950 Age: 67 Gender: Female Procedure: Colonoscopy Providers: Manpreet Perez MD, Geeta Pereira (Ordering Provider) Referring Provider: Geeta Pereira Pre-op Diagnoses: Screening for colorectal malignant neoplasm Post-op Diagnoses: - Non-bleeding internal hemorrhoids. - The examination was otherwise normal. - No specimens collected. Recommendation: - Patient has a contact number available for emergencies. The signsand symptoms of potential delayed complications were discussed with the patient. Return to normal activities tomorrow. Written discharge instructions were provided to the patient. - High fiber diet and fiber powder supplement (Metamucil orBenefiber), one TBS daily. - Continue present medications. - Repeat colonoscopy in 10 years for screening purposes. - Thank you, Dr Smyth, for your referral. Findings: The perianal and digital rectal examinations were normal. Non-bleeding internal hemorrhoids were found during retroflexion. The hemorrhoids were moderate. Retroflexion in the right colon was performed. The exam was otherwise without abnormality. Medicines: Propofol per Anesthesia Complications: No immediate complications. Procedure Details: The patient was seen, evaluated, and history reviewed. Airway and heart and lung exams were performed and were satisfactory for plannedsedation care. The risks, benefits and alternatives for the procedure and sedation were discussed andinformed consent was obtained. A procedural pause was conducted in the presence of assisting personnelto verify the correct patient identity and procedureto be performed. Throughout the procedure, the patient's blood pressure, pulse, and oxygen saturations were monitored continuously. The [id number] was introduced underdirect vision through the anus and advanced to thececum, identified by appendiceal orifice and ileocecal valve. The colonoscopy was performed without difficulty. The patient tolerated the procedure well. Scope advanced to cecum using waterexchange. The quality of the bowel preparation wasevaluated using the BBPS ([place] Bowel Preparation Scale)with scores of: Right Colon = 2 (minor amount ofresidual staining, small fragments of stool and/or opaque liquid, but mucosa seen well), Transverse Colon =3 (entire mucosa seen well with no residualstaining, small fragments of stool or opaque liquid) andLeft Colon = 3 (entire mucosa seen well with noresidual staining, small fragments of stool or opaque liquid). The total BBPS score equals 8. Thequality of the bowel preparation was good. The ileocecal valve, appendiceal orifice, and rectum were photographed. Sedation: Anesthesia was administered by an anesthesia professional. Thefollowing parameters were monitored: oxygen saturation, heart rate, blood pressure, respiratory rate, EKG, adequacy of pulmonary ventilation,and response to care. Manpreet Perez MD 04/28/2018 8:22:21 AM This report has been signed electronically. Number of Addenda: 0 Note Initiated On: 04/28/2018 7:27 AM Manpreet Perez M.D. GI PROCEDURE ORDERAB LES from Last 3 Months or Most Recently Relevant to Health Maintenance Advance Directives For more information, please contact: [phone] Documents on File Type Date Recorded Patient Director Of Agronomy Expl anation Advance Directives 05/07/2016 12:00 AM Gregoria yoon document. See document viewer. * Full Code (Latest Code Status on File) Date Activated Date Inactivated Comments 03/25/2022 1:50 PM 03/26/2022 3:59 PM Question Answer Comments Full Code: Not Discussed Due to: Patient not available * Full Code Date Activated Date Inactivated Comments 04/27/2021 2:14 PM 04/29/2021 4:41 PM Question Answer Comments Full Code: Discussed * Full Code Date Activated Date Inactivated Comments 04/28/2018 7:08 AM 04/28/2018 12:38 PM Question Answer Comments Full Code: Not Discussed Due to: Patient not available Care Teams Electronics Hardware Design Engineer Relationship Specialty Start Date End Date Geeta Ladd M.D. [id number] [place] [phone] PCP - General Family Medicine 03/31/17
--- OUTSIDE RECORDS SUMMARY | 2023-11-17 11:04 | XMS_ITS | Referral Summary ---
Author Organization [facility] Address [address] [place] [address] Care Team Providers Care Welfare Analyst Name Role Phone Geeta Ladd M.D. Primary Care Pro vider Source Comments Patient records contain information from all sites at [facility]. For routine questions regarding patient records, call [phone] during business hours, M-F 8:00 AM - 5:00 PM Central Time. Record requests for emergency care only can be directed to [phone] at any time.[facility] Encounters Date Type Department Care Team Description 11/03/2023 9:30 AM CDT Anticoagulation Visit Department of Anticoagulation in [place], [place] [address] [place] [address] Geeta Ladd M.D. 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 Hemiplegia And Hemiparesis Following Cerebral Infarction Affecting Right Dominant Side (HCC); Patent Foramen Ovale (HCC); Monitoring For Therapeutic Drug Therapy; Cuff Setter Lockstitch (Current) Anticoagulant Treatment; Antiphospholipid Antibody Syndrome (HCC) Discharge Disposition: Home or Self Care 09/22/2023 8:32 AM CDT - 09/22/2023 11:59 PM CDT Hospital Encounter Department of Laboratory Medicine in [address] [phone] Geeta Ladd M.D. Antiphospholipid Antibody Syndrome (HCC) Discharge Disposition: Home or Self Care 09/22/2023 9:30 AM CDT Anticoagulation Visit Department of Anticoagulation in [address] [phone] Geeta Ladd M.D. Hemiplegia And Hemiparesis Following Cerebral Infarction Affecting Right Dominant Side (HCC) (Primary Dx); Patent Foramen Ovale (HCC); Monitoring For Therapeutic Drug Therapy; Mcc (Current) Anticoagulant Treatment; Antiphospholipid Antibody Syndrome (HCC) 09/09/2023 Orders Only Department of Family Medicine, [facility], in [address] [phone] Geeta Ladd M.D. Hemiplegia And Hemiparesis Following Cerebral Infarction Affecting Right Dominant Side (HCC) (Primary Dx); Patent Foramen Ovale (HCC); Monitoring For Therapeutic Drug Therapy; Mcc (Current) Anticoagulant Treatment 08/25/2023 9:29 AM CDT - 08/25/2023 11:59 PM CDT Hospital Encounter Department of Radiology in [address] [phone] Geeta Ladd M.D. Screening Mammogram Breast Cancer Discharge Disposition: Home or Self Care 08/25/2023 9:27 AM CDT - 08/25/2023 9:28 AM CDT Hospital Encounter Department of Laboratory Medicine in [address] [address] Geeta Ladd M.D. Hemiplegia And Hemiparesis Following Cerebral Infarction Affecting Right Dominant Side (HCC); Patent Foramen Ovale (HCC); Monitoring For Therapeutic Drug Therapy; Mcc (Current) Anticoagulant Treatment; Antiphospholipid Antibody Syndrome (HCC) Discharge Disposition: Home or Self Care 08/25/2023 10:30 AM CDT Anticoagulation Visit Department of Anticoagulation in [place] [address] [place] [address] Geeta Ladd M.D. Antiphospholipid Antibody Syndrome (HCC) (Primary Dx); Hemiplegia And Hemiparesis Following Cerebral Infarction Affecting Right Dominant Side (HCC); Patent Foramen Ovale (HCC); Monitoring For Therapeutic Drug Therapy; Cuff Setter Lockstitch (Current) Anticoagulant Treatment from Last 3 Months Allergies Active Allergy Reactions Criticality Noted Date [...] (HCC),Patent Foramen Ovale (HCC),Monitoring For Therapeutic Drug Therapy,Cuff Setter Lockstitch (Current) Anticoagulant Treatment,Antiphosph olipid Antibody Syndrome (HCC) [...] Overview: Added automatically from request for surgery [id number] Monitoring For Therapeutic Drug Therapy 09/09/19 Cuff Setter Lockstitch (Current) Anticoagulant Treatment 08/16 Primary Osteoarthritis Knee Right 07/31/2021 Overview: Added automatically from request for surgery [id number] Patent Foramen Ovale 05/23/2021 Hemiplegia And Hemiparesis F ollowing Cerebral Infarction Affecting Right Dominant Side 05/06/2021 Hypertension Essential Primary 10/07/2020 Obstructive Sleep Apnea Adult 03/31/2017 Presbyopia 10/09/2015 Replacement Intraocular Lens Status Post 05/25/2 016 Osteoporosis 09/22/2010 Overview: DEXA 2016- Spine T-SCORE: -2.8, Hip T-SCORE: -2.5 Started on Fosamax 2016 DEXA 2018- Spine T-score: -1.5, Hip T-score: -2.7 Pain Low Back Unspecified Tendinitis Posterior Tibialis Right Resolved Problems Problem Noted Date Diagnosed Date Resolved Date Weakness Arm Right 04/27/2021 3 Screening Cancer Colon 04/11/201805/03 Overview: Added automatically from request for surgery [id number] Immunizations Name Administration Dates Next Due Influenza [...] (65 year s or older) (PF) 05/03/2019,04/11/2018 Social History Tobacco Use Types Packs/Day Years [...] week 10/05/2022 How often do you attend [facility] or faith services? Patient declined 10/05/2022 Do you belong [...] Answer Date Recorded PHQ-2 Score 0 01/17/2023 [facility] [place] of Occupat ional Health - Occupational Stress [...] place to sleep or slept in a long term (including now)? No 10/05/2022 Nutrition Answer Date [...] Sex Assigned at Female 05/23/2021 7:48 PM RETAIL SALES ASSOCIATE SEASONAL Gender Identity Female 08/29/2020 10:07 AM CDT Sexual Orientation Straight 08/29/2020 10 :07 AM CDT Last Filed Vital Signs Vital Sign Reading Time Taken Comments Blood Pressure 131/59 06/21/2023 1:20 PM RETAIL SALES ASSOCIATE SEASONAL Pulse 63 06/21/2023 1:20 PM RETAIL SALES ASSOCIATE SEASONAL Temperature 35.9 ??C (96.6 ??F) 06/21/2023 1:05 PM CS T Respiratory Rate 16 06/21/2023 1:20 PM RETAIL SALES ASSOCIATE SEASONAL Oxygen Saturation 99% 06/21/2023 1:20 PM RETAIL SALES ASSOCIATE SEASONAL Inhaled Oxygen Concentration - - Weight 86.3 kg (190 lb 4.1 oz) 06/21/2023 11:13 AM RETAIL SALES ASSOCIATE SEASONAL Height 173.2 cm (5' 8.19) 06/21/2023 11:[address] Body Mass Index 28.77 06/21/2023 11:13 AM RETAIL SALES ASSOCIATE SEASONAL Plan of Treatment Upcoming Encounters Date Type Department Care Team (Latest Contact Info) Description 12/15/2023 8:50 AM CDT Appointment Department of Laboratory Medicine in [address] [phone] Geeta Ladd M.D. [address] [place] [phone] 12/15/2023 9:30 AM CDT Anticoagulation Visit Department of Anticoagulation in [address] [phone] Geeta Ladd M.D. [address] [place] [phone] Medical Devices Implanted Type Area Safe Deposit Attendant Device Identifier Shelf Expiration Date Model / Serial / Lot Tibial Component Implanted:Qty : 1 on 03/25/2022 by Navneet Suh M.D. at [facility] Knee Implant Right: Knee Anne [id number] 02/04/2027 5536-B-50 0 / NA / [id number] Femoral Component Implanted:Qty : 1 on 03/25/2022 by Navneet Suh M.D. at [facility] Knee Implant Right: Knee Waianae [id number] 11/24/2026 5516-F-60 2 / NA / [id number] Tibial Bearing Insert Implanted:Qty : 1 on 03/25/2022 by Navneet Suh M.D. at [facility] Knee Implant Right: Knee Wa[place]ae [id number] 02/09/2027 5532-G-51 0-E / NA / [id number] Patella Implanted:Qty : 1 on 03/25/2022 by Navneet Suh M.D. at [facility] Knee Implant Right: Knee Waianae [id number] 05/01/2026 5556-L-33 9 / NA / [id number] [...] Ovale (HCC) Monitoring For Therapeutic Drug Therapy Mcc (Current) Anticoagulant Treatment Antiphospholipid Antibody Syndrome (HCC) [...] Ovale (HCC) Monitoring For Therapeutic Drug Therapy Cuff Setter Lockstitch (Current) Anticoagulant Treatment Antiphospholipid Antibody Syndrome (HCC) BASIC METABOLIC PANEL, S/P Routine 01/22/2023 9:14 AM CDT Hypertension Essential Primary COLONOSCOPY 04/28/2018 7:27 AM RETAIL SALES ASSOCIATE SEASONAL from Last 3 Months or Most Recently [...] POCT ORDERABLES - DEVICE Performing Organization Address City/State/[facility] Co de Phone Number [facility] [address] [place] [address], [facility] [place] [address] * BI Breast Screening Bilateral with Tomosynthesis [...] ASSESSMENT: BI-RADS: 1: Negative. Geeta SQUIRES BI OR OCEDURES * Basic Metabolic Panel (01/22/2023 9:14 [...] CDT Geeta Hamilton M.D. LAB BLOOD ADD-ON [facility] [address] [place] [address], [facility] CNFL [facility] in [address] [address] * COLONOSCOPY (04/28/2018 7:27 AM RETAIL SALES ASSOCIATE SEASONAL) Narrative Procedure Note Manpreet Perez M.D. - 04/28/2018 7:27 AM CST [facility] Patient Name: Julisa Moody Procedure [...] oxygen saturations were monitored continuously. The 01 [id number] was introduced underdirect vision through the anus and advanced to thececum, identified by appendiceal orifice and ileocecal valve. The colonoscopy was performed without difficulty. The patient tolerated the procedure well. Scope advanced to cecum using waterexchange. The quality of the bowel preparation wasevaluated using the BBPS ([place] Bowel Preparation Scale)with scores of: Right Colon [...] Advance Directives For more information, please contact: [phone] Documents on File Type Date Recorded Patient Cloud Services Architect Expl anation Advance Directives 05/07/2016 12:00 AM [...] Due to: Patient not available Care Teams Welfare Analyst Relationship Specialty Start Date End Date Geeta Ladd M.D. [address] [place] [phone] PCP - General Family Medicine 03/31/17
--- OUTSIDE RECORDS SUMMARY | 2023-11-17 11:04 | XMS_ITS | Encounter Summary ---
Author Organization [facility] Address [address] [place] [address] Care Team Providers Care Cotton Classer Name Role Phone Geeta Ladd M.D. Primary Care Pro vider Reason for Referral * Outpatient (Routine) - Authorized Specialty Diagnoses / Procedures Referred By Contact Referred To Contact Hematology / Anticoagulation Diagnoses Hemiplegia And Hemiparesis Following Cerebral Infarction Affecting Right Dominant Side (HCC) Patent Foramen Ovale (HCC) Monitoring For Therapeutic Drug Therapy Mcc (Current) Anticoagulant Treatment Geeta Ladd M.D. [address] [place] [address] Referral ID Status Reason Start Date Expiration Date Visits Requested Visits Authorized [id number] Authorized Specialty Services Required 09/09/2023 09/08/2025 1 1 Scheduling Instructions Per [facility] warfarin management protocols Encounter Details Date Type Department Care Team (Late st Contact Info) Description 09/09/2023 Orders Only Department of Family Medicine, [facility], in [address] [phone] Geeta Ladd M.D. [address] [place] [phone] Hemiplegia And Hemiparesis Following Cerebral Infarction Affecting Right Dominant Side (HCC) (Primary Dx); Patent Foramen Ovale (HCC); Monitoring For Therapeutic Drug Therapy; Tank Builder Supervisor (Current) Anticoagulant Treatment Social History Tobacco Use Types Packs/Day Years [...] 10/05/2022 How often do you attend chur ch or jewish services? Patient declined 10/05/2022 Do you belong to any clubs o r organizations such as denominational groups, unions, fraternal or athletic groups, or [...] Answer Date Recorded PHQ-2 Score 0 01/17/2023 [facility] of Occupat ional Health - Occupational [...] place to sleep or slept in a intermediate (including now)? No 10/05/2022 Nutrition Answer Date [...] Sex Assigned at Female 05/23/2021 7:48 PM ROLLS BAKER Gender Identity Female 08/29/2020 10:07 AM CDT Sexual Orientation Straight 08/29/2020 10 :07 AM CDT documented as of this encounter Plan of Treatment Upcoming Encounters Date Type Department Care Team (Latest Contact Info) Description 12/15/2023 8:50 AM CDT Appointment Department of Laboratory Medicine in [address] [phone] Geeta Ladd M.D. [address] [place] [phone] 12/15/2023 9:30 AM CDT Anticoagulation Visit Department of Anticoagulation in [address] [address] Geeta Ladd M.D. [address] [place] [phone] Scheduled Referrals Name Type Priority Associated Diagnoses Orde r Schedule Anticoagulation monitoring consult (clinic) Outpatient Referral Routine Hemiplegia And Hemiparesis Following Cerebral Infarction Affecting Right Dominant Side (HCC) Patent Foramen Ovale (HCC) Monitoring For Therapeutic Drug Therapy Mcc (Current) Anticoagulant Treatment Ordered: 09/09/2023 documented as of this encounter Visit Diagnoses Diagnosis Hemiplegia And Hemiparesis Following Cerebral Infarction Affecting Right Dominant Side (HCC)- Primary Patent Foramen Ovale (HCC) Monitoring For Therapeutic Drug Therapy Mcc (Current) Anticoagulant Treatment documented in this encounter Additional Health Concerns Assessment Noted Time PHQ-9 Depression Total Score: 1 02/03/20 18 8:48 AM CDT documented as of this encounter Care Teams Cotton Classer Relationship Specialty Start Date End Date Geeta Ladd M.D. [address] [phone] PCP - General Family Medicine 03/31/17 documented as of this encounter
--- OUTSIDE RECORDS SUMMARY | 2023-11-17 11:04 | XMS_ITS ---
Author Organization [facility] Address [address] [place] [address] Care Team Providers Care Wafer Production Worker Name Role Phone Unavailable Unavailable Unavailable Surgery Details Not on file Complications Check Surgery Details section. Procedure Estimated Blood Loss Check Surgery Details section. Procedure Findings Check Surgery Details section. Procedure Specimens Taken Check Surgery Details section.
--- OUTSIDE RECORDS SUMMARY | 2023-11-17 11:05 | XMS_ITS | Encounter Summary ---
Author Organization [facility] Address [address] [place] [address] Care Team Providers Care Mental Health Tech Name Role Phone Geeta Ladd M.D. Primary Care Pro vider Reason for Visit * Outpatient (Routine) - Authorized Specialty Diagnoses / Procedures Referred By Abida t Referred To Contact Anticoagulation Geeta Ladd M.D. [address] [place] [address] [place] [address] [facility] Referral ID Status Reason Start Date Expiration Date V isits Requested Visits Authorized [id number] Authorized 11/30/2022 11/29/[phone] Encounter Details Date Type Department Care Team (Latest Contact Info) Description 08/25/2023 10:30 AM CDT Anticoagulation Visit Department of Anticoagulation in [place], [place] [address] [place] [address] Geeta Ladd M.D. [address] [place] [address] Antiphospholipid Antibody Syndrome (HCC) (Primary Dx); Hemiplegia And Hemiparesis Following Cerebral Infarction Affecting Right Dominant Side (HCC); Patent Foramen Ovale (HCC); Monitoring For Therapeutic Drug Therapy; Senior Care (Current) Anticoagulant Treatment Social History Tobacco Use [...] week 10/05/2022 How often do you attend [facility] or methodist services? Patient declined 10/05/2022 Do you belong [...] Answer Date Recorded PHQ-2 Score 0 01/17/2023 [employer] of Occupat ional Health - Occupational Stress [...] place to sleep or slept in a penitentiary (including now)? No 10/05/2022 Nutrition Answer Date [...] Sex Assigned at Female 05/23/2021 7:48 PM CHAIRMAN Gender Identity Female 08/29/2020 10:07 AM CDT Sexual Orientation Straight 08/29/2020 10 :07 AM CDT documented as of this encounter Patient Instructions * Patient Instructions* Berta Mujica R.N. - 08/25/2023 10:30 AM CDT Your next INR will be in 4 weeks. You will need to call the Anticoagulation Program for warfarin dosing at the scheduled time for your nurse visit, as indicated on your Patient Appointment Guide (PAG). To reschedule your appointment or for questions about your warfarin, please call Primary Care Anticoagulation Program at [phone] from 7:30 am to 4:30 pm. Wednesday-Wednesday [...] if you start any herbal or other agdg-drw-rnyhvsz product (check with your doctor, a nurse, or pharmacist). If you change your diet significantly. If you decide to stop or start using tobacco or alcohol. If you notice unusual bruising or bleeding. If you notice dark, tarry, or bright red stools or blood in your urine. If you have a painful and swollen calf. documented in this encounter Progress Notes * Berta Mujica R.N. - 08/25/2023 10:30 AM CDT Warfarin Maintenance Nursing Protocol Goal [...] in range today? Yes, but patient has a history of stroke/TIA with OR without diagnosis of atrial fibrillation (AF)/atrial flutter , patient not eligible for testing interval extension. Proceeded to maintenance warfarin dosing and follow-up. Additional Info: None Previous INR was therapeutic. Today???s INR is Therapeutic. Dosing and follow up recommendation: Protocol dosing range for INR 2.0-3.0: No change in weekly dose. Currently bridging? no. Next INR in twice the amount of time since last INR (max duration is 4-6 weeks): 4 weeks. Additional dosing or follow-up information: None. [...] CDT Appointment Department of Laboratory Medicine in [address] [phone] Geeta Ladd M.D. [address] [place] [phone] 12/15/2023 9:30 AM CDT Anticoagulation Visit Department of Anticoagulation in [place] [address] [place] [address] Geeta Ladd M.D. [address] [place] [phone] documented as of this encounter Results * INR Reflex, POCT, Blood (09/22/2023 8:36 AM CDT) INR Reflex, POCT, B 2.6 09/22/2023 8:36 AM CDT CNFL Comment: ----ADDITIONAL INFORMATION---- Standard intensity warfarin therapeutic range: 2.0 to 3.0 ?? High intensity warfarin therapeutic range: 2.5 to 3.5 Blood (Blood, Capillary) 09/22/2023 8:36 AM CDT 09/22/2023 8:36 AM CDT Geeta Hamilton M.D. LAB POCT ORDERABLES - DEVICE [facility] [address] [place] [address], [facility] in [address] [address] documented in this encounter Visit Diagnoses Diagnosis Antiphospholipid Antibody Syndrome (HCC)- Primary Hemiplegia And Hemiparesis Following Cerebral Infarction Affecting Right Dominant Side (HCC) Patent Foramen Ovale (HCC) Monitoring For Therapeutic Drug Therapy Mobile Lab Technician (Current) Anticoagulant Treatment documented in this encounter Additional Health Concerns Assessment Noted Time PHQ-9 Depression Total Score: 1 02/03/20 18 8:48 AM CDT documented as of this encounter Care Teams Mental Health Tech Relationship Specialty Start Date End Date Geeta Ladd M.D. [address] [place] [phone] PCP - General Family Medicine 03/31/17 documented as of this encounter
--- OUTSIDE RECORDS SUMMARY | 2023-11-17 11:05 | XMS_ITS | Encounter Summary ---
Author Organization [facility] Address [address] [place] [address] Care Team Providers Care J2Ee Architect Name Role Phone Geeta Ladd M.D. Primary Care Pro vider Encounter Details Date Type Department Care Team (Latest Contact Info) Description 08/25/2023 9:27 AM CDT - 08/25/2023 9:28 AM CDT Hospital Encounter Department of Laboratory Medicine in [address] [phone] Geeta Ladd M.D. [address] [place] [phone] Hemiplegia And Hemiparesis Following Cerebral Infarction Affecting Right Dominant Side (HCC); Patent Foramen Ovale (HCC); Monitoring For Therapeutic Drug Therapy; Compressor Station Engineer (Current) Anticoagulant Treatment; Antiphospholipid Antibody Syndrome (HCC) [...] do you attend [facility] or druze services? Patient declined 10/05/2022 Do you belong to any clubs o r organizations such as pentecostal groups, unions, fraternal or athletic groups, or [...] Answer Date Recorded PHQ-2 Score 0 01/17/2023 [facility] of Occupat ional [facility] - Occupational Stress Questionnaire Answer Date Recorded [...] Sex Assigned at Female 05/23/2021 7:48 PM WARD ATTENDANT Gender Identity Female 08/29/2020 10:07 AM CDT [...] (HCC),Patent Foramen Ovale (HCC),Monitoring For Therapeutic Drug Therapy,Compressor Station Engineer (Current) Anticoagulant Treatment,Antiphosphol ipid Antibody Syndrome (HCC) THIS IS YOUR BLOOD THINNER PRESCRIPTION. PLEASE TAKE PER ANTICOAGULATION VISIT SUMMARY- CURRENT DOSE: 1 TAB DAILY 90 tablet 3 08/06/2023 documented as of this encounter Plan of Treatment Upcoming Encounters Date Type Department Care Team (Latest Contact Info) Description 12/15/2023 8:50 AM CDT Appointment Department of Laboratory Medicine in [address] [phone] Geeta Ladd M.D. [address] [place] [phone] 12/15/2023 9:30 AM CDT Anticoagulation Visit Department of Anticoagulation in [place], [place] [address] [place] [address] Geeta Ladd M.D. [address] [place] [phone] documented as of this encounter Procedures Procedure Name Priority Date/Time Associated Diagnosis Comments INR REFLEX, POCT, B Routine 08/25/2023 9:33 AM CDT Hemiplegia And Hemiparesis Following Cerebral Infarction Affecting Right Dominant Side (HCC) Patent Foramen Ovale (HCC) Monitoring For Therapeutic Drug Therapy Compressor Station Engineer (Current) Anticoagulant Treatment Antiphospholipid Antibody Syndrome (HCC) documented in this encounter Results * INR Reflex, POCT, Blood (08/25/2023 9:33 AM CDT) INR Reflex, POCT, B 2.2 08/25/2023 9:33 AM CDT CNFL Comment: ----ADDITIONAL INFORMATION---- Standard intensity warfarin therapeutic range: 2.0 to 3.0 ?? High intensity warfarin therapeutic range: 2.5 to 3.5 Blood (Blood, Capillary) 08/25/2023 9:33 AM CDT 08/25/2023 9:33 AM CDT Geeta Hamilton M.D. LAB POCT ORDERABLES - DEVICE [facility] [address] [place] [address], [place] CNFL [employer] in [address] [address] documented in this encounter Visit Diagnoses Diagnosis Hemiplegia And Hemiparesis Following Cerebral Infarction Affecting Right Dominant Side (HCC) Patent Foramen Ovale (HCC) Monitoring For Therapeutic Drug Therapy Custodial (Current) Anticoagulant Treatment Antiphospholipid Antibody Syndrome (HCC) documented in this encounter Additional Health Concerns Assessment Noted Time PHQ-9 Depression Total Score: 1 02/03/20 18 8:48 AM CDT documented as of this encounter Care Teams J2Ee Architect Relationship Specialty Start Date End Date Geeta Ladd M.D. [address] [phone] PCP - General Family Medicine 03/31/17 documented as of this encounter
--- OUTSIDE RECORDS SUMMARY | 2023-11-17 11:05 | XMS_ITS | Encounter Summary ---
Author Organization [facility] Address [address] [place] [address] Care Team Providers Care Licensed Tax Consultant Name Role Phone Geeta Ladd M.D. Primary Care Pro vider Reason for Visit * Outpatient (Routine) - Authorized Specialty Diagnoses / Procedures Referred By Abida t Referred To Contact Anticoagulation Geeta Ladd M.D. [address] [place] [address] [place] [address] [facility] Referral ID Status Reason Start Date Expiration Date V isits Requested Visits Authorized [id number] Authorized 11/30/2022 11/29/2025 [id number] Encounter Details Date Type Department Care Team (Latest Contact Info) Description 08/11/2023 11:00 AM CDT Anticoagulation Visit Department of Anticoagulation in [place], [place] [address] [place] [address] Geeta Ladd M.D. 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 - 08/11/2023 11:00 AM CDT Your next INR will be 08/25/23. You will need to call the Anticoagulation Program for warfarin dosing at the scheduled time for your nurse visit, as indicated on your Patient Appointment Guide (PAG). To reschedule your appointment or for questions about your warfarin, please call Primary Care Anticoagulation Program at [phone] from 7:30 am to 4:30 pm. Wednesday-Wednesday [...] if you start any herbal or other [id number] product (check with your doctor, a nurse, or pharmacist). If you change your diet significantly. If you decide to stop or start using tobacco or alcohol. If you notice unusual bruising or bleeding. If you notice dark, tarry, or bright red stools or blood in your urine. If you have a painful and swollen calf. documented in this encounter Progress Notes * Celina Bautista R.N. - 08/11/2023 11:00 AM CDT Warfarin Maintenance Nursing Protocol Goal Range 2.0-3.0 (version approved 06/2021) Visit Type: Telephone Primary reason for visit: Routine f/u OR f/u per previous visit recommendations Information provided by:patient INR result: 2.5 Goal range: 2.0-3.0 Inclusion Criteria: All inclusion [...] follow-up. Additional Info: None Previous INR was subtherapeutic. Today???s INR is Therapeutic. Dosing and follow up recommendation: Protocol dosing range for INR 2.0-3.0: No change in weekly dose. Currently bridging? no. Next INR in 2 weeks. per positive screening criteria. Additional dosing or follow-up information: None. Pt is on injectable anticoagulant: No. Plan used: Protocol. See Anticoagulation Track Calendar for dosing and plan details. Anticoagulation Visit Summary: Patient repeats back dosing instructions, date of next INR, and has no further questions at this time. Total time spent with patient: 15 minutes documented in this encounter Plan of Treatment Upcoming Encounters Date Type Department Care Team (Latest Contact Info) Description 12/15/2023 8:50 AM CDT Appointment Department of Laboratory Medicine in [address] [phone] Geeta Ladd M.D. [address] [place] [phone] 12/15/2023 9:30 AM CDT Anticoagulation Visit Department of Anticoagulation in [place], [place] [address] [place] [address] Geeta Ladd M.D. [address] [place] [phone] documented as of this encounter Results * INR Reflex, POCT, Blood (08/25/2023 9:33 AM CDT) INR Reflex, POCT, B 2.2 08/25/2023 9:33 AM CDT [facility] Comment: ----ADDITIONAL INFORMATION---- Standard intensity warfarin therapeutic range: 2.0 to 3.0 ?? High intensity warfarin therapeutic range: 2.5 to 3.5 Blood (Blood, Capillary) 08/25/2023 9:33 AM CDT 08/25/2023 9:33 AM CDT Geeta Hamilton M.D. LAB POCT ORDERABLES - DEVICE [facility] [address] [place] [phone], [facility] in [address] [address] documented in this encounter Visit Diagnoses Diagnosis Hemiplegia And Hemiparesis Following Cerebral Infarction Affecting Right Dominant Side (HCC)- Primary Patent Foramen Ovale (HCC) Monitoring For Therapeutic Drug Therapy Long-Term (Current) Anticoagulant Treatment Antiphospholipid Antibody Syndrome (HCC) documented in this encounter Additional Health Concerns Assessment Noted Time PHQ-9 Depression Total Score: 1 02/03/20 18 8:48 AM CDT documented as of this encounter Care Teams Licensed Tax Consultant Relationship Specialty Start Date End Date Geeta Ladd M.D. [address] [place] [phone] PCP - General Family Medicine 03/31/17 documented as of this encounter
--- OUTSIDE RECORDS SUMMARY | 2023-11-17 11:05 | XMS_ITS | Encounter Summary ---
Author Organization [facility] Address [address] [place] [address] Care Team Providers Care Network Developer Name Role Phone Geeta Ladd M.D. Primary Care Pro vider Encounter Details Date Type Department Care Team (Latest Contact Info) Description 08/11/2023 9:41 AM CDT - 08/11/2023 11:59 PM CDT Hospital Encounter Department of Laboratory Medicine in [address] [phone] Geeta Ladd M.D. 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 PLEASE TAKE PER ANTICOAGULATION VISIT SUMMARY- CURRENT DOSE: 1 TAB DAILY 90 tablet 3 08/06/2023 documented as of this encounter Plan of Treatment Upcoming Encounters Date Type Department Care Team (Latest Contact Info) Description 12/15/2023 8:50 AM CDT Appointment Department of Laboratory Medicine in [address] [phone] Geeta Ladd M.D. [address] [place] [phone] 12/15/2023 9:30 AM CDT Anticoagulation Visit Department of Anticoagulation in [place], [place] [address] [place] [address] Geeta Ladd M.D. [address] [place] [phone] documented as of this encounter Procedures Procedure Name Priority Date/Time Associated Diagnosis Comments INR REFLEX, POCT, B Routine 08/11/2023 9:50 AM CDT Hemiplegia And Hemiparesis Following Cerebral Infarction Affecting Right Dominant Side (HCC) Patent Foramen Ovale (HCC) Monitoring For Therapeutic Drug Therapy Shelter (Current) Anticoagulant Treatment Antiphospholipid Antibody Syndrome (HCC) documented in this encounter Results * INR Reflex, POCT, Blood (08/11/2023 9:50 AM CDT) INR Reflex, POCT, B 2.5 08/11/2023 9:50 AM CDT [facility] Comment: ----ADDITIONAL INFORMATION---- Standard intensity warfarin therapeutic range: 2.0 to 3.0 ?? High intensity warfarin therapeutic range: 2.5 to 3.5 Blood (Blood, Capillary) 08/11/2023 9:50 AM CDT 08/11/2023 9:50 AM CDT Geeta Hamilton M.D. 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 [id number] [phone] PCP - General Family Medicine 03/31/17 documented as of this encounter
--- NOTE | 2023-11-17 11:11 | ED.GENADULT ---
HPI - General Adult General Date Seen: 11/17/23 Chief complaint: Extremity Pain/Injury, Lower Stated complaint: LT ankle injury Time Seen by Provider: 11/17/23 10:54 History of Present Illness HPI narrative: This is a 72-year-old female who has a history of either stroke or TIA (a couple of years ago), a ?hole in her heart?, found during her stroke workup (possibly PFO? On warfarin), with a recent left distal fibular fracture brought to the ER today by EMS with her sons. She is here for evaluation of increased left ankle pain after a fall. Also she had a episode of loss of consciousness and shaking this morning. EMS reports that she had a syncopal event after she fell and re-injured her recently broken left ankle this morning. Vital stable in route. History from the patient is that her has been injured and he apparently has a neck fracture. She has been caring for him at home for the past few days. She recalls that she actually had 2 episodes on Wednesday night where she fainted while she was assisting her to the bathroom. She did lose consciousness. Unknown duration.. It sounds like during 1 of these episodes she did hit the right side of her head and she has a small scalp hematoma on the right parietal scalp. She also injured her left ankle during 1 of these falls. She was seen at the urgent care on Wednesday. Ankle x-ray showed a minimally displaced distal fibular fracture. Dane Walter Placed into a see a.m. boot. She was to follow up with Ortho in clinic today. She was treating her ankle pain with rest, ice, elevation, Tylenol. This morning she was still having some ankle pain but was doing okay in her boot. She was in her kitchen and was transitioning from getting from her chair to getting her foot up onto the scooter so she could move around. She says she lost her balance and fell in the kitchen. In falling she apparently landed awkwardly and twisted both of her legs underneath her. She re-injured her left ankle and was exquisitely painful. She called her son. She was nauseous and dizzy from the pain. She asked him to get her a washcloth because she was getting sweaty. Her son turned away from her to what a washcloth at the kitchen sink when the patient lost consciousness. Patient described her sitting half up and and tremoring with stiffness and shaking affecting both of her arms. She did not respond to his voice. He lowered her to the floor and she did not hit her head. She was unconscious for about 30 seconds and then regained consciousness. She was not incontinent of urine. She did not bite her tongue. Her son felt like she was groggy but awake for a few minutes. He called 911 during the incident and by the time paramedics arrived she was fully alert. She was complaining a lot of ankle pain and nausea. The patient does not recall having had any chest pain or palpitations at any point. She does not have a headache. No confusion. Normal vision. No blurry dose or double vision. No numbness or weakness in her arms or legs. She is having a lot of pain in her left lateral ankle/distal fibula but says it is more comfortable if he she keeps her ankle resting on the bed. No numbness or tingling in her foot. No known history of coronary artery disease, cardiac arrhythmia, cardiac valvular disease. Related Data Home Medications ?Medication ?Instructions ?Recorded ?Confirmed amlodipine 5 mg tablet 5 mg PO DAILY 11/15/23 11/17/23 aspirin 81 mg tablet,delayed 81 mg PO QDAY 11/15/23 11/17/23 release (Adult Aspirin Regimen) atorvastatin 40 mg tablet mg PO 11/15/23 11/17/23 losartan 100 mg tablet 100 mg PO DAILY 11/15/23 11/17/23 warfarin 5 mg tablet 5 mg PO DAILY 11/15/23 11/17/23 Previous Rx's ?Medication ?Instructions ?Recorded hydrocodone 5 mg-acetaminophen 325 1 tab PO Q6H PRN pain #14 tabs 11/17/23 mg tablet hydrocodone 5 mg-acetaminophen 325 1 tab PO Q6H PRN pain #20 tabs 11/17/23 mg tablet ondansetron HCl 4 mg tablet 4 mg PO Q8H #10 tabs 11/17/23 Allergies Allergy/AdvReac Type Severity Reaction Status Date / Time oxycodone Allergy Unknown Verified 11/17/23 14:41 Penicillins Allergy Unknown Verified 11/17/23 14:41 [facility] Medical History (Updated 11/17/23 @ 14:43 by Kasia Paris ~ RN, RN) Stroke ?I63.9 - Cerebral infarction, unspecified (ICD-10) Surgical History (Updated 11/17/23 @ 14:43 by Kasia Paris ~ RN, RN) History of total right knee replacement ?Z96.651 - Presence of right artificial knee joint (ICD-10) Exam Narrative: Exam Narrative: Constitutional: Appears well-developed and well-nourished. Alert. Conversant. Non toxic. HENT: Head: Atraumatic. Nose: Nose normal. Mouth/Throat: Oral mucosa is clear and moist. no trismus. Pharynx normal. Tonsils symmetric. No tonsillar enlargement, erythema, or exudate. Eyes: Conjunctivae normal. EOM normal. Pupils equal, round, and reactive to light. No scleral icterus. Neck: Normal range of motion. Neck supple. No tracheal deviation present. Cardiovascular: Normal rate, regular rhythm. No gallop. No friction rub. No murmur heard. Symmetric radial artery pulses Pulmonary/Chest: Effort normal. No stridor. No respiratory distress. No wheezes. No rales. No rhonchi . No tenderness. Abdominal: Soft. Bowel sounds normal. No distension. No mass. No tenderness. No rebound. No guarding. Musculoskeletal: RUE: Normal range of motion. No tenderness. No deformity LUE: Normal range of motion. No tenderness. No deformity RLE: Normal range of motion. No edema. No tenderness. No deformity LLE: Normal range of motion. No edema. No tenderness. No deformity Lymph: No cervical adenopathy. Neurological: Alert and oriented to person, place, and time. Normal strength. CN II-VII intact. No sensory deficit. GCS eye subscore is 4. GCS verbal subscore is 5. GCS motor subscore is 6. Normal coordination Skin: Skin is warm and dry. No rash noted. No pallor. Normal capillary refill. Psychiatric: Normal mood. Normal affect. Const: Vital Signs, click to edit/add: Vital Signs - 24 hr 11/17/23 10:37 11/17/23 10:38 11/17/23 10:43 Temperature 97.9 F Pulse Rate 73 67 Pulse Rate [Pulse Oximeter] 73 Respiratory Rate 18 Blood Pressure 131/65 Blood Pressure [Le ft Upper Arm] 131/65 Pulse Oximetry 96 96 96 Oxygen Delivery Me thod Room Air 11/17/23 10:45 11/17/23 11:00 11/17/23 11:00 Temperature Pulse Rate 73 67 Pulse Rate [Pulse Oximeter] Respiratory Rate Blood Pressure Blood Pressure [Le ft Upper Arm] Pulse Oximetry 92 95 95 Oxygen Delivery Me thod 11/17/23 11:02 11/17/23 11:15 11/17/23 11:22 Temperature Pulse Rate 68 65 69 Pulse Rate [Pulse Oximeter] Respiratory Rate Blood Pressure 115/51 L 113/51 L Blood Pressure [Le ft Upper Arm] Pulse Oximetry 95 95 93 Oxygen Delivery Me thod 11/17/23 11:23 11/17/23 11:30 11/17/23 11:35 Temperature Pulse Rate 68 66 68 Pulse Rate [Pulse Oximeter] Respiratory Rate Blood Pressure Blood Pressure [Le ft Upper Arm] Pulse Oximetry 95 96 96 Oxygen Delivery Me thod 11/17/23 11:45 11/17/23 12:00 11/17/23 12:05 Temperature Pulse Rate 62 64 60 Pulse Rate [Pulse Oximeter] Respiratory Rate Blood Pressure Blood Pressure [Le ft Upper Arm] Pulse Oximetry 92 95 95 Oxygen Delivery Az thod 11/17/23 12:15 11/17/23 12:30 11/17/23 12:35 Temperature Pulse Rate 60 66 64 Pulse Rate [Pulse Oximeter] Respiratory Rate Blood Pressure Blood Pressure [Le ft Upper Arm] Pulse Oximetry 96 94 95 Oxygen Delivery Az thod 11/17/23 12:35 11/17/23 13:12 11/17/23 13:15 Temperature Pulse Rate 64 62 62 Pulse Rate [Pulse Oximeter] Respiratory Rate Blood Pressure Blood Pressure [Le ft Upper Arm] Pulse Oximetry 95 95 95 Oxygen Delivery Az thod 11/17/23 13:19 Temperature Pulse Rate 64 Pulse Rate [Pulse Oximeter] Respiratory Rate Blood Pressure 122/62 Blood Pressure [Le ft Upper Arm] Pulse Oximetry 97 Oxygen Delivery Az thod Course Vital Signs Vital signs: Initial Vital Signs Pulse Rate 73 11/17/23 10:37 Blood Pressure 131/65 11/17/23 10:37 Blood Pressure Mean 87 11/17/23 10:37 Pulse Oximetry 96 11/17/23 10:37 Vital Signs Pulse Rate 73 11/17/23 10:37 Blood Pressure 131/65 11/17/23 10:37 Pulse Oximetry 96 11/17/23 10:37 Temperature 97.9 F 11/17/23 10:43 Pulse Rate 64 11/17/23 13:19 Respiratory Rate 18 11/17/23 10:43 Blood Pressure 122/62 11/17/23 13:19 Pulse Oximetry 97 11/17/23 13:19 Oxygen Delivery Method Room Air 11/17/23 10:43 Medications Administered Medications: Discontinued Medications Generic Name Dose Route Start Last Admin Trade Name Freq PRN Reason Stop Dose Admin Hydromorphone HCl 0.5 mg 11/17/23 10:54 11/17/23 13:18 Hydromorphone 0.5 Mg/0.5 Ml Inj IVP 0.5 mg Q1H PRN Administration Pain Sodium Chloride 500 mls @ 500 mls/hr 11/17/23 10:54 11/17/23 14:02 0.9 % Sodium Chloride 500 Ml IV 11/17/23 11:53 Infused .Q1H ONE Infusion Ondansetron HCl 4 mg 11/17/23 10:54 11/17/23 11:16 Ondansetron 2 Mg/Ml Inj IVP 11/17/23 10:55 Not Given ONCE ONE Medical Decision Making MDM Narrative Medical decision making narrative: This is a pleasant 72-year-old female presenting the ER this morning after she had an unconscious see how. We described here it sounds like she lost her balance and fell and then re-injured her recently broken left ankle. She then got nauseous, sweaty, and then lost consciousness. Son saw her lose consciousness and describes some twitching which I think may represent convulsive syncope rather than true seizure. It is little bit unclear whether not she had a postictal spell or not. She did not bite her tongue and was not incontinent of urine. Considering that this was a possible syncopal event, history of JOSÉ LUIS would favor probable vasovagal syncope. However she had 2 other episodes of syncope on Wednesday night (the 2nd of which caused her ankle fracture). She describes the episodes of syncope in the night be related to bending and lifting her , and Could potentially have been orthostatic. However differential would also include recurrent cardiac arrhythmias. EKG and guest laundry attendant here in the ER shows sinus rhythm. No murmurs . Initial ECG shows normal sinus rhythm and no dysrhythmogenic abnormality such as WPW, prolonged QT, Brugada syndrome, and no ischemia. No symptoms/findings concerning for cardiac ischemia or ACS . No headache or other neurologic symptoms to suggest subarachnoid , stroke . Since she did hit her head the other night when she fainted and has a small scalp hematoma and is on warfarin we did do a head CT and is normal. director television news while the patient here in the ER showed no dysrhythmia or ectopy. A broad differential diagnosis was considered including SVT, Atrial fibrillation, ventricular arrhythmia, thyroid disease, acute electrolyte abnormality, drugs/medications, medication side effect, anemia, heart disease, among others. Given that the patient has had 3 spells in the past couple of days, strong consideration for admission is given. However in discussion with the patient and her family, they feel that each of these fainting spells taken if Nicole can easily be explained by the circumstances ( syncope due to pain today. Orthostatics syncope the other night while caring for her ). Therefore using a process of shared decision making we decided not to admit at this time. She will follow-up with her primary care provider to arrange outpatient on a monitor to rule out other arrhythmias. In terms of the patient's ankle pain repeat x-ray showed no significant displacement of the previous fracture. She remains neurologically intact in the foot. She has an appointment at 2:30 a.m. this afternoon with [facility]. She and her family are eager to make it to that appointment. Therefore will discharge her from the ER and she will go directly there. She does feel like her fracture pain is not well controlled with [id number] acetaminophen. She cannot take NSAIDs because of her anticoagulant. Will give her prescription for hydrocodone, which she has tolerated well in the past. She and her family understand opiate precautions. Zofran prescription also provided. Precautions for return to the ER reviewed. Lab Data Labs: Lab Results 11/17/23 Range/Units 11:05 WBC 7.98 (4.50-11.00) K/uL RBC 4.76 (4.00-5.20) m/uL Hgb 14.3 (12.0-16.0) gm/dL Hct 44.7 (33.0-51.0) % MCV 94 (80-100) fL MCH 30 (26-34) pg MCHC 32 (32-36) gm/dL RDW Coeff of Robe 12.8 (11.5-15.5) % Plt Count 267 (140-440) K/uL Neut % (Auto) 78.5 H (42.0-72.0) % Lymph % (Auto) 14.0 L (20-44) % Ballard % (Auto) 6.3 (0.0-11.0) % Eos % (Auto) 0.4 (0.0-7.0) % Baso % (Auto) 0.4 (0.0-3.0) % Neut # (Auto) 6.30 (1.7-7.0) K/uL Lymph # (Auto) 1.10 (0.90-2.90) K/uL Ballard # (Auto) 0.50 (0.00-0.90) K/UL Eos # (Auto) 0.03 (0.00-0.50) K/uL Baso # (Auto) 0.03 (0.00-0.30) K/uL Abs Immat Gran (auto) 0.03 (0.00-0.30) K/uL Imm/Tot Granulo (auto) 0.4 % Sodium 137 (135-149) mmol/L Potassium 4.1 (3.6-5.1) mmol/L Chloride 106 (96-114) mmol/L Carbon Dioxide 24 (20-32) mmol/L Anion Gap 7 (7-15) mEq/L BUN 12 (7-30) mg/dL Creatinine 0.7 (0.5-1.5) mg/dL Estimated Creat Clear 48.00 Estimated GFR 91 ml/min Glucose 102 (60-115) mg/dL Lactate 1.4 (0.5-1.9) mmol/L Calcium 8.6 (8.4-10.6) mg/dL Troponin I < 0.01 L (0.01-0.04) ng/mL TSH 0.876 (0.270-4.200) uIU/mL Imaging Data CT scan - head: Attestation: I have reviewed the pertinent imaging results. Radiologist's impression: IMPRESSION: No acute intracranial abnormality. CT C spine: Attestation: I have reviewed the pertinent imaging results. Radiologist's impression: IMPRESSION: No acute displaced fracture or malalignment of the cervical spine. XR Left ankle: Attestation: I have reviewed the pertinent imaging results. Radiologist's impression: Findings/impression : There is redemonstration of a minimally displaced Vela B distal fibula fracture with minimal lateral displacement. No medial clear space widening. No new fracture or malalignment. Reduced lateral ankle soft tissue swelling. XR left knee: Attestation: I have reviewed the pertinent imaging results. Radiologist's impression: Findings/impression : No acute fracture or malalignment. No joint effusion. Mild joint space narrowing and subchondral sclerosis with small osteophyte formation of the lateral patellofemoral joint space; otherwise, no significant osteoarthritic degenerative changes of the left knee. No suspicious osseous lesions. Vascular calcifications. ECG Data Attestation: I personally reviewed and interpreted this ECG as follows: Interpretation: Sinus rhythm with marked sinus arrhythmia. Rate: 67 MI: 180 QRS axis: Normal axis. ST segment/T wave: Nonspecific T-wave flattening. QTc: 418 Discharge Plan Discharge Clinical Impression: Syncope, Ankle fracture, left Patient Disposition: Home, Self-Care Condition: Stable Instructions: Ankle Fracture (DC), Syncope (DC) Additional Instructions: Please follow-up with your orthopedic appointment today at 2:30 a.m.. Please follow-up with your regular doctor for recheck either on Wednesday or next Wednesday. Ask your regular doctor to arrange an outpatient heart monitor for you. If you have any worsening ankle pain, numbness or pallor in your foot, or any problems with here fracture, call your orthopedist or come back to the ER immediately. If you have any more dizzy spells or fainting, or if you develop trouble breathing, chest pain, confusion, nausea vomiting, or any other problems, return to the ER immediately. Prescriptions: New hydrocodone-acetaminophen 5-325 mg tablet 1 tab PO Q6H PRN (Reason: pain) Qty: 14 0RF ondansetron HCl 4 mg tablet 4 mg PO Q8H Qty: 10 0RF No Action atorvastatin 40 mg tablet PO warfarin 5 mg tablet 5 mg PO DAILY amlodipine 5 mg tablet 5 mg PO DAILY losartan 100 mg tablet 100 mg PO DAILY aspirin [Adult Aspirin Regimen] 81 mg tablet,delayed release (DR/EC) 81 mg PO QDAY hydrocodone-acetaminophen 5-325 mg tablet 1 tab PO Q6H PRN (Reason: pain) Qty: 20 0RF Follow Up/Referrals: Geeta Ladd MD [Primary Care Provider] - Stand Alone Forms: MyHealth Info Instructions
[2023-11-17] MEDS: HYDROmorphone 0.5 mg/0.5 ml inj IVP ×2 (11:14→13:18)
[2023-11-17] MEDS: 0.9 % SODIUM CHLORIDE 500 ML 500 ML IV (11:15)
[2023-11-17 11:26] LABS: Lactate* 1.4 mmol/L (0.5-1.9)
[2023-11-17 11:27] LABS: Basophils Absolute Auto 0.03 K/uL (0.00-0.30); Basophils Percent Auto 0.4 % (0.0-3.0); Eosinophils Absolute Auto 0.03 K/uL (0.00-0.50); Eosinophils Percent Auto 0.4 % (0.0-7.0); Hematocrit 44.7 % (33.0-51.0); Hemoglobin* 14.3 gm/dL (12.0-16.0); Immature Granulocytes Abs Auto 0.03 K/uL (0.00-0.30); Immature Granulocytes Pct Auto 0.4 %; Mean Corpuscular HGB Conc 32 gm/dL (32-36); Mean Corpuscular Hemoglobin 30 pg (26-34); Mean Corpuscular Volume 94 fL (80-100); Monocytes Percent Auto 6.3 % (0.0-11.0); Neutrophils Percent Auto 78.5 % (42.0-72.0); Platelet Count* 267 K/uL (140-440); RDW Coefficient of Variation % 12.8 % (11.5-15.5); Red Blood Count 4.76 m/uL (4.00-5.20); White Blood Count* 7.98 K/uL (4.50-11.00)
[2023-11-17 11:28] LABS: Slide Review Reflex No
[2023-11-17 11:47] LABS: Chloride* 106 mmol/L (96-114); Potassium* 4.1 mmol/L (3.6-5.1); Sodium* 137 mmol/L (135-149)
[2023-11-17 11:50] LABS: Anion Gap 7 mEq/L (7-15); Blood Urea Nitrogen* 12 mg/dL (7-30); Carbon Dioxide* 24 mmol/L (20-32); Creatinine* 0.7 mg/dL (0.5-1.5); Estimated Glomerular Filt Rate 91 ml/min; Glucose* 102 mg/dL (60-115)
[2023-11-17 11:51] LABS: Calcium* 8.6 mg/dL (8.4-10.6)
[2023-11-17 12:08] LABS: Troponin I* < 0.01 ng/mL (0.01-0.04)
[2023-11-17 12:53] LABS: TSH With Reflex to FT4* 0.876 uIU/mL (0.270-4.200)
== END 2023-11-17 14:11 | disposition home or self-care (01) ==
PROVIDERS: Emergency Provider Emergency Medicine; PCP General Practice
DX: R55 Syncope and collapse (principal); S82.832A Other fracture of upper and lower end of left fibula, initial encounter for closed fracture
CPT/HCPCS: 36415; 70450; 72125; 73562; 73610; 80048; 83605; 84443; 84484; 85025; 93005; 94761; 96374; 96375; 99284; 99285; J1170; J7030